=== PATIENT | male | born 1950 | race Caucasian/White ===

== ENCOUNTER 2020-04-24 18:28 | Emergency (ER) | payer MEDICARE, MEDICAID, SELFPAY ==
--- NOTE | 2020-04-24 18:33 | ED_ITS ---
HPI - Psych General: Chief Complaint: General Medical Stated Complaint: mhe Time Seen by Provider: 04/24/20 18:33 History of Present Illness: HPI Narrative: Mr. Vora is a 70-year-old gentleman who was pulled over under suspicion of driving under the influence. He has a history of COPD, and a recent diagnosis of colon cancer, and was brought to the hospital for fit for confinement determination. On his arrival, he complains of widespread pain, including his stomach, neck, and back. He says that he has had fevers, been coughing, and been short of breath. MD complaint: altered mental status Onset (ago): hour(s) History of same: Yes Exacerbating factors: medication Associated symptoms: Deny auditory hallucinations, visual hallucinations or suicidal ideation Review of Systems Const: Denies: fever(s) or chills Eyes: Denies: change in vision or blurry vision ENMT: Reports: post nasal drip and sinus pain; Denies: bleeding gums, change in hearing or epistaxis Card: Denies: chest pain, palpitations, irregular heart rhythm or edema Resp: Reports: dyspnea, productive cough and wheezing; Denies: non-productive cough GI: Reports: abdominal pain, nausea and rectal pain; Denies: vomiting : Denies: difficulty urinating or hematuria Musc: Reports: neck pain and back pain Skin/Breast: Denies: rash or erythema Neuro: Reports: dizziness; Denies: headache(s), vertigo or confusion Psych: Denies: visual hallucinations, auditory hallucinations or suicidal ideation PFSH ED PFSH: Social History Smoking and tobacco status: current every day smoker Physical Exam Const: GENERAL APPEARANCE: Limp noted and odor of alcohol detected ORIENTATION/CONSCIOUSNESS: Yes oriented to person, Yes oriented to place and Yes oriented to time HENMT: COMMON NORMALS: normocephalic, external ears normal and Normal external nose present HEAD & SCALP: normocephalic FACE & SINUS: normal facial exam NOSE: Normal external nose present and No nasal discharge present EXTERNAL EAR: Yes external ears normal MOUTH: tongue normal THROAT: posterior oropharynx normal Eye: COMMON NORMALS: Equal, round and reactive pupils present, EOMs intact bilaterally and conjunctivae normal EYELID: eyelids normal CONJUNCTIVA: Yes conjunctivae normal PUPIL: Yes Equal, round and reactive pupils present Neck/C-Spine: GENERAL: No tracheal deviation Chest: COMMONS NORMALS: normal inspection of the chest CHEST: No tenderness Resp: COMMON NORMALS: clear to auscultation bilaterally EFFORT & INSPECTION: No tachypneic, No respiratory distress, No retractions, No uses accessory muscles and No tracheal deviation AUSCULTATION: clear to auscultation bilaterally, no rhonchi, no wheezes and lung sounds not diminished Cardio: COMMON NORMALS: regular rate and regular rhythm RATE: regular rate RHYTHM: regular rhythm HEART SOUNDS: no murmurs PERIPHERAL PULSES: radial pulses present GI: INSPECTION: No abdominal distension AUSCULTATION: No Hyperactive bowel sounds present and No Hypoactive bowel sounds present PALPATION: No Guarding due to palpation present (GI) and No Rigid due to palpation PERCUSSION: no dullness to percussion and no tympanic to percussion Neuro: SENSORIUM/ORIENTATION: Yes oriented to person, Yes oriented to place and Yes oriented to time CRANIAL NERVES: Yes CN normal except as noted SPEECH: Other neuro speech findings (slurred) GAIT: Yes Antalgic gait present SENSORY EXAM: Yes extremities MOTOR EXAM: Pronator motor function not present Skin: COMMON NORMALS: no rashes or lesions noted GENERAL SKIN EXAM: no rashes or lesions noted MDM - Psych MDM Narrative: Medical decision making narrative: 70-year-old gentleman evidently with a history of a rectal mass biopsied by colonoscopy a few days ago. He has multiple complaints, most likely brought on by the fact that he was brought in in handcuffs. His labs are normal. He is mildly intoxicated with alcohol. He carries with him a bottle of hydrocodone prescribed on 04/14/2020 of 69 pills, 6 of which are left. He is on on oxygen chronically, and has maintained good saturations on his home oxygen setting. He will be discharged. Lab Data: Labs: Lab Results 04/24/20 04/24/20 Range/Units 18:40 18:40 WBC 5.8 (4.0-10.0) 10^3/ uL RBC 4.59 (4.1-5.3) 10^6/u L Hgb 14.0 (11.7-16.6) g/dL Hct 43.9 (42.0-52.0) % MCV 95.6 H (80-94) fL MCH 30.5 (28.0-34.0) pg MCHC 31.9 (30.0-36.0) g/dL RDW 13.0 (12.1-15.1) % Plt Count 211 (130-400) 10^3/c mm MPV 10.2 (7.4-10.4) fL Neut % (Auto) 53.6 % Lymph % (Auto) 31.1 % [place] % (Auto) 10.0 % Eos % (Auto) 4.7 % Baso % (Auto) 0.3 % Neut # (Auto) 3.1 (1.8-7.7) 10^3/u L Lymph # (Auto) 1.8 (0.8-4.8) 10^3/u L [place] # (Auto) 0.6 (0.2-0.9) 10^3/u L Eos # (Auto) 0.3 (0.0-0.8) 10^3/u L Baso # (Auto) 0.0 (0.0-0.1) 10^3/u L Nucleated RBC % (a uto) 0 % Nucleated RBCs # 0.0 /100WBC Sodium 140 (136-145) mmol/L Potassium 4.5 (3.5-5.1) mmol/L Chloride 102 (98-107) mmol/L Carbon Dioxide 28 (22-29) mmol/L Anion Gap 14.5 (5-19) BUN 11 (8-23) mg/dL Creatinine 1.0 (0.7-1.2) mg/dL GFR Calculation 74.3 L (90-130) mL/min Glucose 92 (65-115) mg/dL Calculated Osmolal ity 286 (285-295) mOsm/k g Calcium 8.5 (8.5-10.5) mg/dL Total Bilirubin 0.3 (0.15-1.2) mg/dL AST 26 (0-40) U/L ALT 24 (0-41) U/L Alkaline Phosphata se 88 (40-130) IU/L Total Protein 6.7 (6.6-8.7) g/dL Albumin 3.9 (3.5-5.2) g/dL Globulin 2.8 (1.3-4.6) g/dL TSH 2.31 (0.27-4.20) uIU/ mL Salicylates < 0.3 L (3-10) mg/dL Acetaminophen < 5.0 L (10-30) ug/mL Ethyl Alcohol 94 H (0-10) mg/dL Discharge Plan Discharge Patient Disposition: Home, Self-Care Clinical Impression: Alcohol intoxication Qualifiers: Complication of substance-induced condition: uncomplicated Qualified Code(s): F10.920 - Alcohol use, unspecified with intoxication, uncomplicated Chronic pain Qualifiers: Chronic pain type: chronic pain syndrome Qualified Code(s): G89.4 - Chronic pain syndrome Condition: Stable Discharge Orders: Discharge Order (Routine); Ordered 04/24/20 Ordered By: Christofer Trent Discharge Diet: Usual diet Discharge Activity: Increase activity as tolerated Patient Instructions: Chronic Pain (ED), Alcohol Intoxication (ED) Activity Restrictions/Additional Instructions: Mr. Archer is on oxygen chronically for COPD. He is otherwise fit for confinement, but without oxygen availability, he will not be fit. He will therefore be discharged home. Discharge Date/Time: 04/24/20 21:03 Coding Level of Care Code ED Milk Wagon Driver for Trish Lara Exam Comprehensive
--- NOTE | 2020-04-24 18:34 | ECG_ITS ---
Measurements Intervals [place] Rate: 73 P: 76 MT: 163 QRS: 81 QRSD: 93 T: 82 QT: 369 QTc: 407 SINUS RHYTHM Compared to ECG 07/07/2019 10:52:50 No significant changes Electronically Signed On 04-25-2020 10:31:52 CDT by Jimy Cruz MD [email or web address]
--- NOTE | 2020-04-24 18:34 | XR_ITS ---
WS: [id number] PORTABLE CHEST HISTORY: ams COMPARISON: 07/07/2019 Hyperinflated lungs. Scattered granulomata. No pneumonia. Normal vasculature. No pleural effusion or pneumothorax. Cardiac size: Normal. Mediastinum/Aorta: Normal mediastinum. No osseous abnormality seen. XR/XR chest 1V portable [id number] IMPRESSION: Chronic emphysema.
[2020-04-24 18:39] VITALS: BP 149/69; PULSE 80; RESP 18; TEMP 36.8; O2SAT 92; BMI 22.1
[2020-04-24 18:59] LABS: Basophils % 0.3 %; Eosinophils # 0.3 10^3/uL (0.0-0.8); Eosinophils % 4.7 %; Hematocrit 43.9 % (42.0-52.0); Lymphocytes # 1.8 10^3/uL (0.8-4.8); Lymphocytes % 31.1 %; Mean Corpuscular HGB Conc 31.9 g/dL (30.0-36.0); Mean Corpuscular Hemoglobin 30.5 pg (28.0-34.0); Mean Corpuscular Volume 95.6 fL (80-94); Mean Platelet Volume 10.2 fL (7.4-10.4); Monocytes # 0.6 10^3/uL (0.2-0.9); Neutrophils # 3.1 10^3/uL (1.8-7.7); Neutrophils % 53.6 %; Nucleated Red Blood Cells % 0 %; Platelet Count 211 10^3/cmm (130-400); Red Blood Count 4.59 10^6/uL (4.1-5.3); White Blood Count 5.8 10^3/uL (4.0-10.0)
[2020-04-24 19:20] VITALS: BP 147/83; PULSE 71; RESP 18; O2SAT 95
[2020-04-24 19:20] LABS: Thyroid Stimulating Hormone 2.31 uIU/mL (0.27-4.20)
[2020-04-24 19:31] LABS: Alanine Aminotransferase 24 U/L (0-41); Albumin Level 3.9 g/dL (3.5-5.2); Alcohol Level 94 mg/dL (0-10); Alkaline Phosphatase 88 IU/L (40-130); Anion Gap 14.5 (5-19); Aspartate Amino Transferase 26 U/L (0-40); Blood Urea Nitrogen 11 mg/dL (8-23); Calcium 8.5 mg/dL (8.5-10.5); Carbon Dioxide 28 mmol/L (22-29); Chloride 102 mmol/L (98-107); Globulin 2.8 g/dL (1.3-4.6); Glomerular Filtration Rate 74.3 mL/min (90-130); Glucose 92 mg/dL (65-115); Osmolality Calculated 286 mOsm/kg (285-295); Potassium 4.5 mmol/L (3.5-5.1); Sodium 140 mmol/L (136-145); Total Bilirubin 0.3 mg/dL (0.15-1.2); Total Protein 6.7 g/dL (6.6-8.7)
[2020-04-24 19:34] LABS: Acetaminophen < 5.0 ug/mL (10-30); Salicylate < 0.3 mg/dL (3-10)
== END 2020-04-24 21:03 | disposition home or self-care (01) ==
PROVIDERS: Emergency Provider Emergency Medicine
DX: F10.120 Alcohol abuse with intoxication, uncomplicated (principal); Y90.4 Blood alcohol level of 80-99 mg/100 ml; G89.4 Chronic pain syndrome; F17.210 Nicotine dependence, cigarettes, uncomplicated
CPT/HCPCS: 12345; 71045; 80053; 80307; 84443; 85025; 93005; 93010; 99281; 99283

== ENCOUNTER 2020-07-17 00:12 | Emergency (ER) | payer MEDICARE, MEDICAID, SELFPAY ==
[2020-07-17 00:38] VITALS: BP 172/74; PULSE 75; RESP 22; TEMP 36.7; O2SAT 95; BMI 25.1
--- NOTE | 2020-07-17 00:53 | XRR_ITS ---
PROCEDURE INFORMATION: Exam: XR Chest, 1 View Exam date and time: 07/17/2020 1:30 AM Age: 70 years old Clinical indication: Cough; Additional info: Copd, cough TECHNIQUE: Imaging protocol: XR of the chest Views: 1 view. COMPARISON: CR XR chest 1V portable [id number] 2020-04-24 18:48 FINDINGS: Lungs: COPD. Pleural space: Trace pleural effusions. Heart/Mediastinum: Unremarkable. No cardiomegaly. Bones/joints: Unremarkable. XR/XR chest 1V portable [id number] IMPRESSION: COPD. Trace pleural effusions.
--- NOTE | 2020-07-17 00:53 | XRR_ITS ---
PROCEDURE INFORMATION: Exam: XR Right Hip with Pelvis when Performed Exam date and time: 07/17/2020 2:11 AM Age: 70 years old Clinical indication: Injury or trauma; Fall; Initial encounter; Blunt trauma (contusions or hematomas); Right; Hip TECHNIQUE: Imaging protocol: XR Right hip with pelvis when performed. Views: 1 view. COMPARISON: No relevant prior studies available. FINDINGS: No acute fracture or dislocation is demonstrated on these 2 views. There is joint space narrowing. XR/XR hip RT 2-3V wo/w pel* [id number] IMPRESSION: No acute osseous abnormality is demonstrated.
--- NOTE | 2020-07-17 01:01 | W.ED.SOB ---
HPI - SOB/Dyspnea General: Chief Complaint: Shortness of Breath/Dyspnea Stated Complaint: bad sinus infection/ chronic pain/ fell Time Seen by Provider: 07/17/20 00:49 Source: patient Mode of arrival: ambulatory Limitations: no limitations History of Present Illness: HPI Narrative: Patient comes in today with complaints of right hip pain due to a fall yesterday. Patient also reports a sinus infection with productive cough of yellow-green sputum. Patient has a history of COPD, lung cancer, hepatitis C, cirrhosis of the liver. Patient appears in no acute distress. Patient appears well. Patient appears in mild to moderate pain. Review of Systems General: Reports: 10 or more systems reviewed and unremarkable except in HPI and below Resp: Reports: productive cough Musc: Reports: joint pain (right hip) PFSH ED PFSH: Social History Smoking and tobacco status: current every day smoker Physical Exam Const: COMMON NORMALS: no acute distress and patient oriented x3 GENERAL APPEARANCE: cooperative HENMT: COMMON NORMALS: normocephalic and TM's normal bilaterally HEAD & SCALP: normal to inspection and normocephalic NOSE: Nasal discharge present and Other nasal findings present TYMPANIC MEMBRANE: TM's normal bilaterally MOUTH: Normal oral and palatal mucosa present THROAT: posterior oropharynx normal Eye: GENERAL EYE: appearance normal, both eyes and all related structures Neck/C-Spine: COMMON NORMALS: full ROM Lymph: LYMPHATIC: no lymphadenopathy noted Chest: COMMONS NORMALS: normal inspection of the chest Resp: COMMON NORMALS: normal respiratory effort EFFORT & INSPECTION: Yes able to speak in complete sentences AUSCULTATION: diminished lung sounds Cardio: COMMON NORMALS: regular rate and regular rhythm RATE: regular rate RHYTHM: regular rhythm GI: COMMON NORMALS: non-tender : COMMON NORMALS: Yes no CVA tenderness BLADDER/KIDNEY EXAM: Yes no CVA tenderness Back/Pelvis: COMMON NORMALS: no CVA tenderness and thoracic and lumbar spine normal to inspection Extremity: COMMON NORMALS: normal to inspection Neuro: COMMON NORMALS: patient oriented x3 and moves all extremities Psych: COMMON NORMALS: mental status grossly normal and cooperative Skin: COMMON NORMALS: no rashes or lesions noted GENERAL SKIN EXAM: no rashes or lesions noted Course Vital Signs: Vital signs: Vital Signs Temperature 98.1 F 07/17/20 00:38 Pulse Rate 73 07/17/20 01:51 Respiratory Rate 18 07/17/20 01:51 Blood Pressure 139/59 07/17/20 01:51 Pulse Oximetry 94 07/17/20 01:51 MDM - SOB/Dyspnea MDM Narrative: Medical decision making narrative: Patient comes in today with complaints of cough and congestion with a productive sputum. Patient also reports falling yesterday and hurting his right hip. Patient states that he has chronic pain in the hip but is aggravated since his fall. Patient states that he falls occasionally due to the arthritis in his hip. Exam notes good range of motion of the hip. Patient is weightbearing without difficulty. Respirations are even lungs are decreased in the bases. Differential diagnosis includes but not limited to pneumonia, exacerbation of COPD, fracture, contusion. Chest x-ray noted no pneumonia. X-ray of the hip noted no fracture. Laboratory values were normal. And patient's vital signs are good. Patient was treated with morphine 4 mg for his pain with good results. Patient was given 1 nebulizer treatment, 8 mg of dexamethasone, and 100 mg of doxycycline p.o. Patient was recommended continue with the doxycycline and prednisone for the exacerbation of COPD. Patient was recommended to follow-up with primary care for further pain measures. Patient does have pain management through 1 of the pain clinics in [facility]. Patient reported understanding agreed to plan. Lab Data: Labs: Lab Results 07/17/20 07/17/20 Range/Units 01:01 01:01 WBC 8.7 (4.0-10.0) 10^3/ uL RBC 4.77 (4.1-5.3) 10^6/u L Hgb 14.0 (11.7-16.6) g/dL Hct 44.1 (42.0-52.0) % MCV 92.5 (80-94) fL MCH 29.4 (28.0-34.0) pg MCHC 31.7 (30.0-36.0) g/dL RDW 12.8 (12.1-15.1) % Plt Count 183 (130-400) 10^3/c mm MPV 10.5 H (7.4-10.4) fL Neut % (Auto) 69.5 % Lymph % (Auto) 19.0 % [place] % (Auto) 8.0 % Eos % (Auto) 2.8 % Baso % (Auto) 0.5 % Neut # (Auto) 6.06 (1.8-7.7) 10^3/u L Lymph # (Auto) 1.7 (0.8-4.8) 10^3/u L [place] # (Auto) 0.7 (0.2-0.9) 10^3/u L Eos # (Auto) 0.2 (0.0-0.8) 10^3/u L Baso # (Auto) 0.0 (0.0-0.1) 10^3/u L Nucleated RBC % (a uto) 0 % Nucleated RBCs # 0.0 /100WBC Sodium 140 (136-145) mmol/L Potassium 4.7 (3.5-5.1) mmol/L Chloride 105 (98-107) mmol/L Carbon Dioxide 28 (22-29) mmol/L Anion Gap 11.7 (5-19) BUN 14 (8-23) mg/dL Creatinine 0.7 (0.7-1.2) mg/dL GFR Calculation 112.1 (90-130) mL/min Glucose 107 (65-115) mg/dL Calculated Osmolal ity 287 (285-295) mOsm/k g Calcium 9.2 (8.5-10.5) mg/dL Discharge Plan Discharge Patient Disposition: Home Clinical Impression: Acute exacerbation of chronic obstructive airways disease, Chronic pain of right hip Fall Qualifiers: Encounter type: initial encounter Qualified Code(s): W19.XXXA - Unspecified fall, initial encounter Condition: Stable Prescriptions: New doxycycline hyclate 100 mg capsule 100 mg PO BID 10 Days Qty: 20 RF: 0 prednisone 20 mg tablet 20 mg PO BID 5 Days Qty: 10 RF: 0 Discharge Orders: Discharge Order (Routine); Ordered 07/17/20 Ordered By: Jonah Burdick Discharge Diet: Usual diet Discharge Activity: Increase activity as tolerated Activity Restrictions/Additional Instructions: Continue with routine care. Drink plenty of water with medication. Follow-up with primary care for further treatment. Activity as tolerated. Return to the emergency department for new concerns. Coding Level of Care Code ED Learning Disabilities Resource Teacher for Trish Fwd Exam Comprehensive
[2020-07-17 01:12] LABS: Basophils % 0.5 %; Eosinophils # 0.2 10^3/uL (0.0-0.8); Eosinophils % 2.8 %; Hematocrit 44.1 % (42.0-52.0); Lymphocytes # 1.7 10^3/uL (0.8-4.8); Mean Corpuscular HGB Conc 31.7 g/dL (30.0-36.0); Mean Corpuscular Hemoglobin 29.4 pg (28.0-34.0); Mean Corpuscular Volume 92.5 fL (80-94); Mean Platelet Volume 10.5 fL (7.4-10.4); Monocytes # 0.7 10^3/uL (0.2-0.9); Neutrophils # 6.06 10^3/uL (1.8-7.7); Neutrophils % 69.5 %; Nucleated Red Blood Cells % 0 %; Platelet Count 183 10^3/cmm (130-400); Red Blood Count 4.77 10^6/uL (4.1-5.3); Red Cell Distribution Width 12.8 % (12.1-15.1); White Blood Count 8.7 10^3/uL (4.0-10.0)
[2020-07-17 01:15] VITALS: PULSE 98; RESP 18; O2SAT 98
[2020-07-17] MEDS: ipratropium-albuterol 3 mL Neb INHALATION (01:15)
[2020-07-17 01:20] VITALS: PULSE 71
[2020-07-17 01:39] LABS: Anion Gap 11.7 (5-19); Blood Urea Nitrogen 14 mg/dL (8-23); Calcium 9.2 mg/dL (8.5-10.5); Carbon Dioxide 28 mmol/L (22-29); Chloride 105 mmol/L (98-107); Creatinine Clr Calc Pharmacy 91.5805; Glomerular Filtration Rate 112.1 mL/min (90-130); Glucose 107 mg/dL (65-115); Osmolality Calculated 287 mOsm/kg (285-295); Potassium 4.7 mmol/L (3.5-5.1); Sodium 140 mmol/L (136-145)
[2020-07-17] MEDS: dexamethasone 10 mg/mL INJ 8 MG IM (01:40)
[2020-07-17 01:42] VITALS: RESP 20
[2020-07-17] MEDS: morphine 4 mg/mL SDV 1 mL IM (01:42)
[2020-07-17 01:51] VITALS: BP 139/59; PULSE 73; RESP 18; O2SAT 94
[2020-07-17] MEDS: doxycycline 100 mg Tablet PO (02:24)
[2020-07-17 02:43] VITALS: BP 149/65; PULSE 86; RESP 22; O2SAT 96
== END 2020-07-17 02:30 | disposition home or self-care (01) ==
PROVIDERS: Emergency Provider Nurse Practitioner Family
DX: J44.1 Chronic obstructive pulmonary disease with (acute) exacerbation (principal); G89.29 Other chronic pain; M25.551 Pain in right hip; F17.210 Nicotine dependence, cigarettes, uncomplicated; Z85.118 Personal history of other malignant neoplasm of bronchus and lung; Z86.19 Personal history of other infectious and parasitic diseases
CPT/HCPCS: 12345; 71045; 73502; 80048; 85025; 94640; 96372; 99281; 99283; J1100; J2270

== ENCOUNTER 2020-08-28 21:02 | Emergency (ER) | payer MEDICARE, MEDICAID, SELFPAY ==
[2020-08-28 21:13] VITALS: BP 158/84; PULSE 73; RESP 16; TEMP 36.9; O2SAT 100; BMI 20.7
--- NOTE | 2020-08-28 21:27 | XR_ITS ---
WS: [id number] PORTABLE CHEST HISTORY: Short of breath and chest pain. COMPARISON: 07/17/2020 Marked pulmonary hyperexpansion. Biapical pleural thickening with minimal blunting of the costophreni c angles. No interval change. No pleural effusion or pneumothorax. Cardiac size: Normal. Mediastinum/Aorta: Mild atherosclerosis aorta. No osseous abnormality seen. XR/XR chest 1V portable [id number] IMPRESSION: Chronic emphysema, no pneumonia.
--- NOTE | 2020-08-28 21:29 | CTR_ITS ---
PROCEDURE INFORMATION: Exam: CT Head Without Contrast Exam date and time: 08/28/2020 9:39 PM Age: 70 years old Clinical indication: Weakness, extremity; Right; Patient HX: Stroke and mi last month C/O worsening rue pain and weakness; Additional info: Weakness right side TECHNIQUE: Imaging protocol: Computed tomography of the head without contrast. Radiation optimization: All CT scans at this facility use at least one of these dose optimization techniques: automated exposure control; mA and/or kV adjustment per patient size (includes targeted exams where dose is matched to clinical indication); or iterative reconstruction. COMPARISON: CT head wo con* [id number] 07/07/2019 8:11 AM RADIATION DOSE METRICS: Total DLP (mGy-cm): 872.16 FINDINGS: Brain: There are multiple areas of cortical and subcortical hypodensity in the left parietal lobe as well as the posterior left frontal lobe and left occipital lobe. There is mild negative mass effect indicating these are late subacute to early chronic in age. There are scattered areas of hyperdensity within the infarcts consistent with petechial hemorrhage. Chronicity is indeterminate. No significant positive mass effect. Chronic lacunar infarct in the left basal ganglia. Cerebral ventricles: No ventriculomegaly. Bones/joints: Unremarkable. No acute fracture. Paranasal sinuses: Visualized sinuses are unremarkable. No fluid levels. Mastoid air cells: Visualized mastoid air cells are well aerated. Orbits: Chronic deformity of the left medial orbital wall. Soft tissues: Unremarkable. 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 There are scattered areas of petechial hemorrhage within the infarct beds but without positive mass effect. Radiation Dose CTDIVOL = (mGy): DLP = 872.16 (mGy-cm)
--- NOTE | 2020-08-28 21:29 | ED_ITS ---
HPI - Chest Pain General: Chief Complaint: Chest Pain Stated Complaint: PAIN R ARM/SAYS HE JUST HAS A STROKE Time Seen by Provider: 08/28/20 21:14 History of Present Illness: HPI narrative: 70-year-old gentleman presents with chest pain and right arm pain. He states that he spent a little over 30 days in the hospital in [place] following a stroke and a heart attack that he had last month. He just got out a few days ago. He began to have worsening right arm pain with some right sided chest pain today. He has a history of COPD as well, and has had some trouble breathing. He is had no fever or cough. He believes that he got TPA for stroke in [place] but he is not sure. He is sure that he did not get stents in his heart placed. MD complaint: chest pain Pertinent past history: prior ID and other (cva) Onset (ago): hour(s) Timing of current episode: constant Prior episodes: Yes Onset: during rest Pain location: right chest Pain radiation: right arm Quality: aching and heaviness Relieving factors: nothing Exacerbating factors: nothing Context: recent illness Associated symptoms: Reports dyspnea; Deny fever(s), leg edema, nausea, palpitations or vomiting Review of Systems Const: Denies: fever(s) Eyes: Denies: change in vision or blurry vision ENMT: Denies: swelling of lips/tongue, bleeding gums, dental pain, change in hearing, epistaxis, post nasal drip or sinus pain Card: Reports: chest pain, dyspnea on exertion and orthopnea; Denies: palpitations, irregular heart rhythm, edema or swelling of feet/ankles Resp: Reports: dyspnea GI: Denies: nausea or vomiting : Denies: difficulty urinating or hematuria Musc: Denies: neck pain, back pain or joint warmth Skin/Breast: Denies: rash, pruritus or erythema Neuro: Denies: headache(s), dizziness or vertigo Psych: Denies: anxiety PFSH ED PFSH: Social History Smoking and tobacco status: current every day smoker Physical Exam Const: COMMON NORMALS: patient oriented x3 GENERAL APPEARANCE: well developed ORIENTATION/CONSCIOUSNESS: Yes oriented to person, Yes oriented to place and Yes oriented to time HENMT: COMMON NORMALS: external ears normal and Normal external nose present FACE & SINUS: other (Mild right-sided facial droop) NOSE: Normal external nose present and No nasal discharge present EXTERNAL EAR: Yes external ears normal Eye: COMMON NORMALS: Equal, round and reactive pupils present, EOMs intact bilaterally and conjunctivae normal EYELID: eyelids normal CONJUNCTIVA: Yes conjunctivae normal PUPIL: Yes Equal, round and reactive pupils present Neck/C-Spine: GENERAL: No tracheal deviation Chest: COMMONS NORMALS: normal inspection of the chest CHEST: No tenderness Resp: EFFORT & INSPECTION: Yes tachypneic, No respiratory distress, No retractions, Yes uses accessory muscles and No tracheal deviation AUSCULTATION: rales, no rhonchi, no wheezes and diminished lung sounds Cardio: COMMON NORMALS: regular rate and regular rhythm RATE: regular rate RHYTHM: regular rhythm HEART SOUNDS: no murmurs PERIPHERAL PULSES: radial pulses present GI: INSPECTION: No abdominal distension AUSCULTATION: No Hyperactive bowel sounds present and No Hypoactive bowel sounds present PALPATION: No Guarding due to palpation present (GI) and No Rigid due to palpation PERCUSSION: no dullness to percussion and no tympanic to percussion : COMMON NORMALS: Yes no CVA tenderness BLADDER/KIDNEY EXAM: Yes no CVA tenderness Back/Pelvis: COMMON NORMALS: no CVA tenderness Neuro: COMMON NORMALS: patient oriented x3 SENSORIUM/ORIENTATION: Yes oriented to person, Yes oriented to place and Yes oriented to time CRANIAL NERVES: Yes CN VII (facial) Laterality: right CN VII findings: facial droop COORDINATION/BALANCE: [id number] test normal SPEECH: abnormal speech Details: slurred GAIT: Yes Unable to assess gait MOTOR EXAM: Pronator motor function present pronator drift of right upper extremity (mild) COORDINATION: [id number] test normal Psych: COMMON NORMALS: mental status grossly normal Skin: COMMON NORMALS: no rashes or lesions noted GENERAL SKIN EXAM: no rashes or lesions noted Course Consultations: Consultation #1: [facility] Vital Signs: Vital signs: Vital Signs Temperature 98.4 F 08/28/20 21:13 Pulse Rate 64 08/29/20 01:54 Respiratory Rate 16 08/29/20 01:54 Blood Pressure 112/60 08/29/20 01:54 Pulse Oximetry 94 08/29/20 01:54 MDM - Chest Pain MDM Narrative: Medical decision making narrative: 70-year-old gentleman with a history of a large left hemispheric stroke. He presents with a right-sided upper extremity pain, with a small increase in weakness since his prior symptoms on the right side. He has no headache. No other recent illness. His white blood cell count is 8.7. Hemoglobin 12.9. Electrolytes are normal. His head CT shows his aging left hemispheric stroke, but with punctate hemorrhage present. This is assumed to be new, as was not present on the last CT he had, which was a couple of days after his admission for the stroke. His pain is improved currently after some pain medication. He notes that he still feels a little weaker in the right upper extremity than he did yesterday. He has no other symptoms. He was hypertensive on arrival, but has gotten Nitropaste on his chest. His current blood pressure is 128/66. Heart rate 62, oxygen saturations 94% on room air with respirations 18. We have no neurosurgery availability or neurology availability at this time in this facility. Hospitals in [facility] are on diversion. I spoke with neurology service at [facility] in [place]. They are willing to take in transfer. He is stable at this point. Lab Data: Labs: Lab Results 08/28/20 08/28/20 08/28/20 Range/Units 21:30 21:30 21:30 WBC 8.7 (4.0-10.0) 10^3/ uL RBC 4.25 (4.1-5.3) 10^6/u L Hgb 12.9 (11.7-16.6) g/dL Hct 40.0 L (42.0-52.0) % MCV 94.1 H (80-94) fL MCH 30.4 (28.0-34.0) pg MCHC 32.3 (30.0-36.0) g/dL RDW 13.6 (12.1-15.1) % Plt Count 180 (130-400) 10^3/c mm MPV 10.7 H (7.4-10.4) fL Neut % (Auto) 68.4 % Lymph % (Auto) 20.3 % [place] % (Auto) 7.8 % Eos % (Auto) 2.9 % Baso % (Auto) 0.3 % Neut # (Auto) 5.94 (1.8-7.7) 10^3/u L Lymph # (Auto) 1.8 (0.8-4.8) 10^3/u L [place] # (Auto) 0.7 (0.2-0.9) 10^3/u L Eos # (Auto) 0.3 (0.0-0.8) 10^3/u L Baso # (Auto) 0.0 (0.0-0.1) 10^3/u L Nucleated RBC % (a uto) 0 % Nucleated RBCs # 0.0 /100WBC PT 12.80 (12.1-14.9) SECO NDS INR 0.93 (0.8-1.2) APTT 26.5 (23.9-36.7) SECO NDS D-Dimer 0.53 (0-0.59) ug/mIFE U Sodium 138 (136-145) mmol/L Potassium 4.3 (3.5-5.1) mmol/L Chloride 103 (98-107) mmol/L Carbon Dioxide 26 (22-29) mmol/L Anion Gap 13.3 (5-19) BUN 14 (8-23) mg/dL Creatinine 0.7 (0.7-1.2) mg/dL GFR Calculation 112.1 (90-130) mL/min Glucose 122 H (65-115) mg/dL Calculated Osmolal ity 288 (285-295) mOsm/k g Calcium 9.5 (8.5-10.5) mg/dL Total Bilirubin 0.2 (0.15-1.2) mg/dL AST 13 (0-40) U/L ALT 9 (0-41) U/L Alkaline Phosphata se 75 (40-130) IU/L Creatine Kinase 37 L (39-308) U/L Troponin T Baselin e (0-15) ng/L Troponin T 120 Min [place] (0-15) ng/L Delta Troponin T (0-10) ABS# NT-Pro-B Natriuret Pep 321 H (0-125) pg/mL Total Protein 6.7 (6.6-8.7) g/dL Albumin 3.9 (3.5-5.2) g/dL Globulin 2.8 (1.3-4.6) g/dL Urine Color (Yellow) Urine Appearance (CLEAR) Urine pH (5-7) Ur Specific Gravit y (1.005-1.030) Urine Protein (Negative) Urine Glucose (UA) (Normal) Urine Ketones (Negative) Urine Blood (Negative) Urine Nitrate (Negative) Urine Bilirubin (Negative) Urine Urobilinogen (Negative) mg/dL Ur Leukocyte Luciana ase (Negative) 08/28/20 08/28/20 08/29/20 Range/Units 21:30 23:25 00:04 WBC (4.0-10.0) 10^3/ uL RBC (4.1-5.3) 10^6/u L Hgb (11.7-16.6) g/dL Hct (42.0-52.0) % MCV (80-94) fL MCH (28.0-34.0) pg MCHC (30.0-36.0) g/dL RDW (12.1-15.1) % Plt Count (130-400) 10^3/c mm MPV (7.4-10.4) fL Neut % (Auto) % Lymph % (Auto) % [place] % (Auto) % Eos % (Auto) % Baso % (Auto) % Neut # (Auto) (1.8-7.7) 10^3/u L Lymph # (Auto) (0.8-4.8) 10^3/u L [place] # (Auto) (0.2-0.9) 10^3/u L Eos # (Auto) (0.0-0.8) 10^3/u L Baso # (Auto) (0.0-0.1) 10^3/u L Nucleated RBC % (a uto) % Nucleated RBCs # /100WBC PT (12.1-14.9) SECO NDS INR (0.8-1.2) APTT (23.9-36.7) SECO NDS D-Dimer (0-0.59) ug/mIFE U Sodium (136-145) mmol/L Potassium (3.5-5.1) mmol/L Chloride (98-107) mmol/L Carbon Dioxide (22-29) mmol/L Anion Gap (5-19) BUN (8-23) mg/dL Creatinine (0.7-1.2) mg/dL GFR Calculation (90-130) mL/min Glucose (65-115) mg/dL Calculated Osmolal ity (285-295) mOsm/k g Calcium (8.5-10.5) mg/dL Total Bilirubin (0.15-1.2) mg/dL AST (0-40) U/L ALT (0-41) U/L Alkaline Phosphata se (40-130) IU/L Creatine Kinase (39-308) U/L Troponin T Baselin e 15 (0-15) ng/L Troponin T 120 Min [place] 14.13 (0-15) ng/L Delta Troponin T -0.87 L (0-10) ABS# NT-Pro-B Natriuret Pep (0-125) pg/mL Total Protein (6.6-8.7) g/dL Albumin (3.5-5.2) g/dL Globulin (1.3-4.6) g/dL Urine Color Yellow (Yellow) Urine Appearance Clear (CLEAR) Urine pH 6 (5-7) Ur Specific Gravit y 1.015 (1.005-1.030) Urine Protein Neg (Negative) Urine Glucose (UA) Norm (Normal) Urine Ketones Negative (Negative) Urine Blood Neg (Negative) Urine Nitrate Negative (Negative) Urine Bilirubin Neg (Negative) Urine Urobilinogen Norm (Negative) mg/dL Ur Leukocyte Luciana ase Negative (Negative) Coding Level of Care Code ED Collar Packer for Chg Fwd Exam Comprehensive
[2020-08-28 21:34] VITALS: BP 156/79; PULSE 81; RESP 22; O2SAT 100
[2020-08-28 21:42] VITALS: RESP 22; O2SAT 100
[2020-08-28] MEDS: nitroglycerin 1 gm/inch oint Pkt 1 INCH TOPICAL (21:42)
[2020-08-28] MEDS: ondansetron 2 mg/ML SDV 2 mL 4 MG IVP (21:42)
[2020-08-28] MEDS: morphine 4 mg/mL SDV 1 mL IVP (21:42)
[2020-08-28 21:54] LABS: Basophils % 0.3 %; Eosinophils # 0.3 10^3/uL (0.0-0.8); Eosinophils % 2.9 %; Hemoglobin 12.9 g/dL (11.7-16.6); Lymphocytes # 1.8 10^3/uL (0.8-4.8); Lymphocytes % 20.3 %; Mean Corpuscular HGB Conc 32.3 g/dL (30.0-36.0); Mean Corpuscular Hemoglobin 30.4 pg (28.0-34.0); Mean Corpuscular Volume 94.1 fL (80-94); Mean Platelet Volume 10.7 fL (7.4-10.4); Monocytes # 0.7 10^3/uL (0.2-0.9); Monocytes % 7.8 %; Neutrophils # 5.94 10^3/uL (1.8-7.7); Neutrophils % 68.4 %; Nucleated Red Blood Cells % 0 %; Platelet Count 180 10^3/cmm (130-400); Red Blood Count 4.25 10^6/uL (4.1-5.3); Red Cell Distribution Width 13.6 % (12.1-15.1); White Blood Count 8.7 10^3/uL (4.0-10.0)
[2020-08-28 22:07] LABS: INR 0.93 (0.8-1.2)
[2020-08-28 22:08] LABS: Partial Thromboplastin Time 26.5 SECONDS (23.9-36.7)
[2020-08-28 22:11] LABS: D Dimer 0.53 ug/mIFEU (0-0.59)
[2020-08-28 22:20] LABS: Troponin(5th) Baseline 15 ng/L (0-15)
[2020-08-28 22:23] VITALS: BP 139/72; PULSE 65; RESP 18; O2SAT 99
[2020-08-28 22:28] LABS: Alanine Aminotransferase 9 U/L (0-41); Albumin Level 3.9 g/dL (3.5-5.2); Alkaline Phosphatase 75 IU/L (40-130); Anion Gap 13.3 (5-19); Aspartate Amino Transferase 13 U/L (0-40); Blood Urea Nitrogen 14 mg/dL (8-23); Calcium 9.5 mg/dL (8.5-10.5); Carbon Dioxide 26 mmol/L (22-29); Chloride 103 mmol/L (98-107); Creatine Phosphokinase 37 U/L (39-308); Globulin 2.8 g/dL (1.3-4.6); Glomerular Filtration Rate 112.1 mL/min (90-130); Glucose 122 mg/dL (65-115); NT Pro B Type Natriuretic Pept 321 pg/mL (0-125); Osmolality Calculated 288 mOsm/kg (285-295); Potassium 4.3 mmol/L (3.5-5.1); Sodium 138 mmol/L (136-145); Total Bilirubin 0.2 mg/dL (0.15-1.2); Total Protein 6.7 g/dL (6.6-8.7)
[2020-08-28 23:19] VITALS: BP 107/64; PULSE 650; RESP 16; O2SAT 99
[2020-08-28 23:56] LABS: Add Urine Microscopic? NO
[2020-08-29 00:06] VITALS: BP 111/63; PULSE 62; RESP 17; O2SAT 97
[2020-08-29 00:23] LABS: Urine Color Yellow (Yellow)
[2020-08-29 00:24] LABS: Bilirubin Urine Neg (Negative); Blood Urine Neg (Negative); Glucose Urine UA Norm (Normal); Ketones Urine Negative (Negative); Leukocyte Esterase Urine Negative (Negative); Nitrate Urine Negative (Negative); Protein Urine Neg (Negative); Specific Gravity, Urine 1.015 (1.005-1.030); Urine Appearance Clear (CLEAR); Urobilinogen Urine Norm (Negative); pH Urine 6 (5-7)
[2020-08-29 00:42] VITALS: RESP 16; O2SAT 99
[2020-08-29] MEDS: HYDROmorphone 1 mg/mL INJ 1 mL IVP (00:42)
[2020-08-29 00:44] VITALS: BP 120/65; PULSE 57; RESP 16; O2SAT 99
[2020-08-29 00:45] LABS: Troponin 5 2HR 14.13 ng/L (0-15)
[2020-08-29 00:49] LABS: Troponin 5 2HR Delta -0.87 ABS# (0-10)
[2020-08-29 01:54] VITALS: BP 112/60; PULSE 64; RESP 16; O2SAT 94
[2020-08-29 03:09] VITALS: BP 102/62; BP 130/68; PULSE 61; PULSE 63; RESP 16; RESP 17; O2SAT 93; O2SAT 95
--- NOTE | 2020-08-29 03:27 | ECG_ITS ---
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 Measurements Intervals [place] Rate: 58 P: 70 RI: 184 QRS: 77 QRSD: 93 T: 78 QT: 411 QTc: 404 Interpretive Statements SINUS BRADYCARDIA ST ELEVATION, PROBABLY EARLY REPOLARIZATION [ST ELEVATION WITH NORMALLY INFLECTED T WAVE] Compared to ECG 04/24/2020 19:42:28 ST (T wave) deviation now present Early repolarization now present Sinus rhythm no longer present Electronically Signed On 08-29-2020 18:01:19 CDT by Radha Hoffmann M.D. [email or web address].[employer]/store/[id number] f
[2020-08-29 04:07] VITALS: BP 138/69; PULSE 63; RESP 17; O2SAT 97
== END 2020-08-29 04:25 ==
PROVIDERS: Emergency Provider Emergency Medicine
DX: R07.9 Chest pain, unspecified (principal); F17.210 Nicotine dependence, cigarettes, uncomplicated
CPT/HCPCS: 12345; 36415; 70450; 71045; 80053; 81003; 82550; 83880; 84484; 85025; 85378; 85610; 85730; 93005; 96374; 96375; 99284; 99285; J1170; J2270; J2405

== ENCOUNTER 2023-08-06 12:08 | Emergency (ER) | payer MEDICARE, MEDICAID, SELFPAY ==
--- NOTE | 2023-08-06 12:12 | XRR_ITS ---
PROCEDURE INFORMATION: Exam: XR Chest Exam date and time: 08/06/2023 12:25 PM Age: 73 years old Clinical indication: Pain; Angina pectoris; Additional info: Cp.No history of trauma or recent surgery is provided. TECHNIQUE: Imaging protocol: Radiologic exam of the chest. 2image(s) are provided. Views: 1 view. COMPARISON: 1. CR XR chest 1V portable [id number] 08/28/2020 10:14 PM 2. CR XR chest 1V portable [id number] 07/17/2020 1:18 AM FINDINGS: Lungs: No lobar consolidation is appreciated. There is mild chronic air trapping appearance similar overall. Pleural spaces: There is some skin fold and fissure averaging similar overall. There is minimal costophrenic angle blunting similar overall. No pneumothorax is appreciated. Heart/Mediastinum: The cardiomediastinal silhouette is within normal. No cardiac decompensation is appreciated. Diaphragm: The hemidiaphragms are symmetric. Bones/joints: Osseous alignment is maintained.No interval displaced fracture or dislocation is appreciated.There is slightly decreased bone mineralization overall. There is slight dextrocurvature versus positioning similar overall. Soft tissues: No radiopaque foreign body or subcutaneous emphysema is appreciated. Other findings: No significant interval changes are appreciated. XR/XR chest 1V portable [id number] IMPRESSION: There is mild chronic air trapping appearance similar overall. No interval acute cardiopulmonary changes are appreciated.
[2023-08-06 12:13] VITALS: BP 196/75; PULSE 67; RESP 18; TEMP 36.8; O2SAT 93; BMI 23.6
--- NOTE | 2023-08-06 12:21 | ECG_ITS ---
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 Measurements Intervals [place] Rate: 63 P: 67 [place]: 163 QRS: 76 QRSD: 90 T: 83 QT: 399 QTc: 410 Interpretive Statements SINUS RHYTHM SEPTAL MYOCARDIAL INFARCTION , OF INDETERMINATE AGE [40+ ms Q WAVE IN V1/V2] Compared to ECG 08/29/2020 03:52:46 Myocardial infarct finding now present Sinus bradycardia no longer present Early repolarization no longer present ST (T wave) deviation still present Electronically Signed On 08-06-2023 14:46:53 CDT by Soy Astorga M.D. [email or web address]/store/[id number]
--- NOTE | 2023-08-06 12:27 | ECG_ITS ---
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 Measurements Intervals [place] Rate: 66 P: 75 DE: 166 QRS: 75 QRSD: 88 T: 81 QT: 394 QTc: 415 Interpretive Statements SINUS RHYTHM MINIMAL ST DEPRESSION [0.025+ mV ST DEPRESSION] Compared to ECG 08/06/2023 12:21:53 Myocardial infarct finding no longer present ST (T wave) deviation still present Electronically Signed On 08-06-2023 14:47:17 CDT by Soy Astorga M.D. [email or web address] hospital at stone countyMultiwave Photonicsst. anthony's hospital.BuildZoom/store/OM/[id number]
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
[2023-08-06] MEDS: aspirin 81 mg Chew Tablet PO (13:10)
[2023-08-06 13:11] VITALS: RESP 16; O2SAT 95
[2023-08-06] MEDS: ondansetron 2 mg/ML SDV 2 mL 4 MG IVP (13:11)
[2023-08-06] MEDS: morphine 4 mg/mL SDV 1 mL IVP (13:11)
[2023-08-06 13:15] LABS: Basophils % 0.4 %; Eosinophils # 0.1 10^3/uL (0.0-0.8); Eosinophils % 0.9 %; Hematocrit 50.2 % (37-53); Lymphocytes # 1.2 10^3/uL (0.8-4.8); Lymphocytes % 18.2 %; Mean Corpuscular HGB Conc 32.5 g/dL (30-55); Mean Corpuscular Hemoglobin 29.2 pg (27-33); Mean Corpuscular Volume 89.8 fl (82-101); Mean Platelet Volume 10.5 fL (7.4-10.4); Monocytes # 0.4 10^3/uL (0.2-0.9); Monocytes % 6.4 %; Neutrophils # 4.99 10^3/uL (1.8-7.7); Nucleated Red Blood Cells % 0 %; Platelet Count 202 10^3/cmm (157-399); Red Blood Count 5.59 10^6/uL (3.85-5.65); Red Cell Distribution Width 12.6 % (12.1-15.1); White Blood Count 6.75 10^3/uL (3.29-11.43)
[2023-08-06 13:19] VITALS: BP 174/102; PULSE 68; O2SAT 92
[2023-08-06] MEDS: nitroglycerin 0.4 mg sublingual Tablet SUBLINGUAL (13:32)
[2023-08-06 13:33] VITALS: BP 175/90; PULSE 56; O2SAT 95
[2023-08-06 13:39] LABS: Troponin(5th) Baseline 7 ng/L (0-15)
[2023-08-06 13:42] LABS: Alanine Aminotransferase < 5 U/L (0-41); Albumin Level 4.9 g/dL (3.5-5.2); Alkaline Phosphatase 102 U/L (40-130); Aspartate Amino Transferase 15 U/L (0-40); Blood Urea Nitrogen 8 mg/dL (8-23); Calcium 9.6 mg/dL (8.5-10.5); Carbon Dioxide 27 mmol/L (22-29); Creatinine Clr Calc Pharmacy 85.5911; Globulin 3.1 g/dL (1.3-4.6); Glucose 86 mg/dL (65-115); Total Bilirubin 0.4 mg/dL (0.15-1.2)
[2023-08-06 14:00] VITALS: BP 153/77; PULSE 56; O2SAT 94
[2023-08-06 14:17] LABS: Anion Gap 14.8 (5-19); Chloride 103 mmol/L (98-107); Osmolality Calculated 288 mOsm/kg (285-295); Potassium 4.8 mmol/L (3.5-5.1); Sodium 140 mmol/L (136-145)
[2023-08-06] MEDS: HYDROmorphone 1 mg/mL INJ 1 mL IVP (14:45)
--- NOTE | 2023-08-07 15:34 | DCPLANNER ---
field care manager called patient due to no primary care physician - immigration case manager called phone number [phone] this is the wrong number
== END 2023-08-06 15:15 | disposition home or self-care (01) ==
PROVIDERS: Emergency Provider Emergency Medicine
DX: R07.9 Chest pain, unspecified (principal); F17.210 Nicotine dependence, cigarettes, uncomplicated
CPT/HCPCS: 36415; 71045; 80053; 84484; 85025; 93005; 96374; 96375; 99285; J1170; J2270; J2405

== ENCOUNTER 2024-05-19 16:08 | Emergency (ER) | payer MEDICARE, MEDICAID, SELFPAY ==
[2024-05-19 16:14] VITALS: BP 198/95; PULSE 61; RESP 18; TEMP 36.7; O2SAT 92; BMI 23.6
[2024-05-19 16:24] VITALS: BP 211/137; PULSE 68; RESP 18; O2SAT 93
--- NOTE | 2024-05-19 16:26 | ECG_ITS ---
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 Measurements Intervals [place] Rate: 59 P: 59 [place]: 174 QRS: 55 QRSD: 89 T: 70 QT: 387 QTc: 386 Interpretive Statements SINUS BRADYCARDIA Compared to ECG 08/06/2023 12:27:49 Sinus rhythm no longer present ST (T wave) deviation no longer present Electronically Signed On 05-22-2024 13:24:22 CDT by Amish Alva M.D. [email or web address] issaquena community hospitalAlephCloud Systemsthe jewish hospitalNEUWAY Pharma/store/NU/[id number] f
--- NOTE | 2024-05-19 16:26 | CTR_ITS ---
PROCEDURE INFORMATION: Exam: CT Head Without Contrast Exam date and time: 05/19/2024 4:58 PM Age: 74 years old Clinical indication: Walking, difficulty; Patient HX: HX of stroke year and half ago; Additional info: Weakjness TECHNIQUE: Imaging protocol: Computed tomography of the head without contrast. Radiation optimization: All CT scans at this facility use at least one of these dose optimization techniques: automated exposure control; mA and/or kV adjustment per patient size (includes targeted exams where dose is matched to clinical indication); or iterative reconstruction. COMPARISON: CT head wo con* [id number] 08/28/2020 9:46 PM RADIATION DOSE METRICS: Total DLP (mGy-cm): 1153 FINDINGS: Brain: There are areas of encephalomalacia involving the left posterior frontal, parietal and occipital lobes consistent with chronic cerebral infarctions and corresponding with the areas of subacute or early chronic infarct seen on 08/28/2020. There is mild cortical atrophy. Low-density changes in the white matter are consistent with nonspecific small vessel chronic ischemic change. There is no intracranial mass, hemorrhage or edema. Cerebral ventricles: No ventriculomegaly. Paranasal sinuses: Visualized sinuses are unremarkable. No fluid levels. Mastoid air cells: Visualized mastoid air cells are well aerated. Bones: Unremarkable. No acute fracture. Soft tissues: Unremarkable. CT/CT head wo con* [id number] IMPRESSION: Chronic left hemispheric infarcts. No acute finding.
--- NOTE | 2024-05-19 16:26 | XRR_ITS ---
PROCEDURE INFORMATION: Exam: XR Chest Exam date and time: 05/19/2024 4:34 PM Age: 74 years old Clinical indication: Other: Weakness TECHNIQUE: Imaging protocol: Radiologic exam of the chest. Views: 1 view. COMPARISON: 1. CR XR chest 1V portable [id number] 08/06/2023 12:25 PM 2. CR XR chest 1V portable [id number] 08/28/2020 10:14 PM FINDINGS: Lungs: Lungs are mildly hyperinflated. No focal infiltrate is identified. Pleural spaces: Unremarkable. No pleural effusion. No pneumothorax. Heart/Mediastinum: Heart is within normal limits of size. Bones/joints: There are degenerative changes in the thoracic spine with mild scoliosis concave to the left. XR/XR chest 1V portable [id number] IMPRESSION: No acute infiltrate. No significant change from prior examinations.
--- NOTE | 2024-05-19 16:37 | ED_ITS ---
HPI - Weakness 2 General: Chief complaint: Weakness Stated complaint: neck pain, back pain, nausea Time Seen by Provider: 05/19/24 16:27 Source: patient Mode of arrival: ambulatory Limitations: no limitations History of Present Illness: 74-year-old male who is here with multip le complaints states has been having severe neck and back pain for the last week. He states he has chronic neck and back pain but it has been worsening and his oxycodone has not really helped he rates that pain a 7 out of 10 states he is just felt ill as well and had some fatigue he had a stroke about a year ago states he has some slurred speech at baseline but states he feels like it is worsening he is able to talk clearly here and answer all my questions appropriately denies any focal weakness he denies headache denies chest pain Associated symptoms: Denies chest pain, chills, dysuria, fever(s), headache(s), nausea or vomiting Review of Systems 2 Const: Reports: body aches and malaise; Denies: fever(s), chills or change in appetite ENMT: Denies: throat pain or dental pain Card: Denies: chest pain Resp: Denies: dyspnea GI: Denies: abdominal pain, nausea, vomiting or diarrhea : Denies: dysuria Musc: Reports: neck pain and back pain Skin/Breast: Denies: rash Neuro: Denies: headache(s) PFSH ED 2 PFSH: Social History Smoking and tobacco/nicotine status: current every day tobacco/nicotine user Physical Exam 2 Const: COMMON NORMALS: no acute distress, patient oriented x3, healthy appearing and alert ORIENTATION/CONSCIOUSNESS: Yes oriented to person, Yes oriented to place and Yes oriented to time HENMT: COMMON NORMALS: normocephalic and atraumatic HEAD & SCALP: n ormocephalic and atraumatic Eye: COMMON NORMALS: Equal, round and reactive pupils present and EOMs intact bilaterally PUPIL: Yes Equal, round and reactive pupils present Neck/C-Spine: COMMON NORMALS: full ROM and supple Chest: COMMONS NORMALS: normal inspection of the chest Resp: COMMON NORMALS: normal respiratory effort, No retractions, No use of accessory muscles and clear to auscultation bilaterally AUSCULTATION: clear to auscultation bilaterally Cardio: COMMON NORMALS: regular rate, regular rhythm and No murmurs present (Cardio) RATE: regular rate RHYTHM: regular rhythm GI: COMMON NORMALS: Normal to inspection, nondistended, normoactive bowel sounds present, Soft to palpation, non-tender and no masses PALPATION: Yes Soft to palpation Extremity: COMMON NORMALS: normal to inspection and full ROM Neuro: COMMON NORMALS: patient oriented x3, moves all extremities and no focal motor deficits SENSORIUM/ORIENTATION: Yes alert, Yes oriented to person, Yes oriented to place and Yes oriented to time CRANIAL NERVES: Yes CN normal except as noted SPEECH: speech normal GAIT: Yes Normal gait present Psych: COMMON NORMALS: mental status grossly normal, Normal thought process present and cooperative THOUGHT PROCESS: Normal thought process present Skin: COMMON NORMALS: no rashes or lesions noted and no wounds GENERAL SKIN EXAM: no rashes or lesions noted Course 2 Vital Signs: Vital signs: Vital Signs Temperature 98.1 F 05/19/24 16:14 Pulse Rate 57 L 05/19/24 18:00 Respiratory Rate 18 05/19/24 18:00 Blood Pressure 147/69 05/19/24 18:00 Pulse Oximetry 91 05/19/24 18:00 Oxygen Delivery Me thod Room Air 05/19/24 16:14 MDM - Weakness Medical Decision Making Patient presents here with neck and back pain is chronic in nature blood work imaging here is all normal he has no signs of a stroke here he is ambulatory at discharge he was requesting me to refill his pain meds because he had ran out informed he needs to follow-up with his PCP as we do not refill pain meds in the ER. His pain had improved here in the ER. Medical Records I reviewed the patient's medical records. Lab Data I reviewed the patient's lab results. 05/19/24 16:55 05/19/24 16:55 Radiology Impressions Chest X-Ray 05/19/24 16:26 IMPRESSION: No acute infiltrate. No significant change from prior examinations. Head CT 05/19/24 16:26 IMPRESSION: Chronic left hemispheric infarcts. No acute finding. Laboratory Results WBC 7.15 10^3/uL (3.29-11.43) 05/19/24 16:55 RBC 4.85 10^6/uL (3.85-5.65) 05/19/24 16:55 Hgb 14.60 g/dL (11.27-16.99) 05/19/24 16:55 Hct 45.2 % (37-53) 05/19/24 16:55 MCV 93.2 fl (82-101) 05/19/24 16:55 MCH 30.1 pg (27-33) 05/19/24 16:55 MCHC 32.3 g/dL (30-55) 05/19/24 16:55 RDW 12.9 % (12.1-15.1) 05/19/24 16:55 Plt Count 216 10^3/cmm (157-399) 05/19/24 16:55 MPV 10.6 fL (7.4-10.4) H 05/19/24 16:55 Neut % (Auto) 70.9 % 05/19/24 16:55 Lymph % (Auto) 18.6 % 05/19/24 16:55 Harnett % (Auto) 7.3 % 05/19/24 16:55 Eos % (Auto) 2.8 % 05/19/24 16:55 Baso % (Auto) 0.3 % 05/19/24 16:55 Neut # (Auto) 5.07 10^3/uL (1.8-7.7) 05/19/24 16:55 Lymph # (Auto) 1.3 10^3/uL (0.8-4.8) 05/19/24 16:55 Harnett # (Auto) 0.5 10^3/uL (0.2-0.9) 05/19/24 16:55 Eos # (Auto) 0.2 10^3/uL (0.0-0.8) 05/19/24 16:55 Baso # (Auto) 0.0 10^3/uL (0.0-0.1) 05/19/24 16:55 Nucleated RBC % (auto) 0 % 05/19/24 16:55 Nucleated RBCs # 0.0 /100WBC 05/19/24 16:55 Sodium 139 mmol/L (136-145) 05/19/24 16:55 Potassium 4.7 mmol/L (3.5-5.1) 05/19/24 16:55 Chloride 102 mmol/L (98-107) 05/19/24 16:55 Carbon Dioxide 29 mmol/L (22-29) 05/19/24 16:55 Anion Gap 12.7 (5-19) 05/19/24 16:55 BUN 9 mg/dL (8-23) 05/19/24 16:55 Creatinine 0.8 mg/dL (0.7-1.2) 05/19/24 16:55 GFR Calculation Not Reportable 05/19/24 16:55 Glucose 108 mg/dL (65-115) 05/19/24 16:55 POC Glucose 114 mg/dL (70-110) H 05/19/24 16:35 Calculated Osmolality 287 mOsm/kg (285-295) 05/19/24 16:55 Calcium 8.9 mg/dL (8.5-10.5) 05/19/24 16:55 Magnesium 1.8 mg/dL (1.7-2.3) 05/19/24 16:55 Total Bilirubin 0.4 mg/dL (0.15-1.2) 05/19/24 16:55 AST 12 U/L (0-40) 05/19/24 16:55 ALT < 5 U/L (0-41) 05/19/24 16:55 Alkaline Phosphatase 80 U/L (40-130) 05/19/24 16:55 Total Protein 7.0 g/dL (6.6-8.7) 05/19/24 16:55 Albumin 3.7 g/dL (3.5-5.2) 05/19/24 16:55 Globulin 3.3 g/dL (1.3-4.6) 05/19/24 16:55 Lipase 16 U/L (13-60) 05/19/24 16:55 Urine Color Yellow (Yellow) 05/19/24 16:47 Urine Appearance Clear (CLEAR) 05/19/24 16:47 Urine pH 6 (5-7) 05/19/24 16:47 Ur Specific [place] 1.015 (1.005-1.030) 05/19/24 16:47 Urine Protein Neg (Negative) 05/19/24 16:47 Urine Glucose (UA) Norm (Normal) 05/19/24 16:47 Urine Ketones Negative (Negative) 05/19/24 16:47 Urine Blood Neg (Negative) 05/19/24 16:47 Urine Nitrate Negative (Negative) 05/19/24 16:47 Urine Bilirubin Neg (Negative) 05/19/24 16:47 Urine Urobilinogen Norm mg/dL (Negative) 05/19/24 16:47 Ur Leukocyte Esterase Negative (Negative) 05/19/24 16:47 All radiology interpretation(s) finalized by discharge EKG Data EKG 1: I personally reviewed and interpreted this EKG as follows: EKG interpretation date: 05/19/24 EKG interpretation time: 16:33 Interpretation: sinus louis hr [address] or t wave abnormalities qrs 89 qtc 387 Discharge Plan Discharge Patient Disposition: Home Clinical Impression: Back pain, Fatigue Condition: Stable Prescriptions: No Action terazosin 5 mg capsule 5 mg PO DAILY atorvastatin 40 mg tablet 40 mg PO DAILY carvedilol 6.25 mg tablet 6.25 mg PO BID sertraline 100 mg tablet 100 mg PO DAILY oxycodone 10 mg tablet 10 mg PO Q8H PRN (Reason: Pain) Discharge Orders: Discharge ED (Routine); Ordered 05/19/24 Ordered By: Lainey Frey Discharge Diet: Advance as tolerated Discharge Activity: Resume usual activity Patient Instructions: Weakness (ED), Back Pain (ED) Coding Level of Care Code ED Engineering Administrator for Trish Lara
[2024-05-19 16:38] LABS: Glucose Point of Care 114 mg/dL (70-110)
[2024-05-19 16:55] LABS: Add Urine Microscopic? NO; Charge for UA Resulting for Rev
[2024-05-19 17:01] LABS: Bilirubin Urine Neg (Negative); Blood Urine Neg (Negative); Glucose Urine UA Norm (Normal); Ketones Urine Negative (Negative); Leukocyte Esterase Urine Negative (Negative); Nitrate Urine Negative (Negative); Protein Urine Neg (Negative); Specific Gravity, Urine 1.015 (1.005-1.030); Urine Appearance Clear (CLEAR); Urine Color Yellow (Yellow); Urobilinogen Urine Norm (Negative); pH Urine 6 (5-7)
[2024-05-19 17:05] LABS: Basophils % 0.3 %; Eosinophils # 0.2 10^3/uL (0.0-0.8); Eosinophils % 2.8 %; Hematocrit 45.2 % (37-53); Lymphocytes # 1.3 10^3/uL (0.8-4.8); Lymphocytes % 18.6 %; Mean Corpuscular HGB Conc 32.3 g/dL (30-55); Mean Corpuscular Hemoglobin 30.1 pg (27-33); Mean Corpuscular Volume 93.2 fl (82-101); Mean Platelet Volume 10.6 fL (7.4-10.4); Monocytes # 0.5 10^3/uL (0.2-0.9); Monocytes % 7.3 %; Neutrophils # 5.07 10^3/uL (1.8-7.7); Neutrophils % 70.9 %; Nucleated Red Blood Cells % 0 %; Platelet Count 216 10^3/cmm (157-399); Red Blood Count 4.85 10^6/uL (3.85-5.65); Red Cell Distribution Width 12.9 % (12.1-15.1); White Blood Count 7.15 10^3/uL (3.29-11.43)
[2024-05-19] MEDS: ondansetron 2 mg/ML SDV 2 mL 4 MG IVP (17:12)
[2024-05-19 17:13] VITALS: BP 191/92; PULSE 60; RESP 16; RESP 18; O2SAT 94
[2024-05-19] MEDS: morphine 4 mg/mL SDV 1 mL IVP (17:13)
[2024-05-19] MEDS: hyDRALAzine 20 mg/mL INJ 1 mL 10 MG IVP (17:13)
[2024-05-19 17:20] LABS: Alanine Aminotransferase < 5 U/L (0-41); Albumin Level 3.7 g/dL (3.5-5.2); Alkaline Phosphatase 80 U/L (40-130); Aspartate Amino Transferase 12 U/L (0-40); Blood Urea Nitrogen 9 mg/dL (8-23); Calcium 8.9 mg/dL (8.5-10.5); Carbon Dioxide 29 mmol/L (22-29); Chloride 102 mmol/L (98-107); Creatinine Clr Calc Pharmacy 84.3507; Globulin 3.3 g/dL (1.3-4.6); Glucose 108 mg/dL (65-115); Lipase 16 U/L (13-60); Magnesium 1.8 mg/dL (1.7-2.3); Osmolality Calculated 287 mOsm/kg (285-295); Sodium 139 mmol/L (136-145); Total Bilirubin 0.4 mg/dL (0.15-1.2)
--- NOTE | 2024-05-19 17:23 | PC.NURSE ---
PT PLACED ON SPO2, NIBP, AND CM
[2024-05-19 17:30] VITALS: BP 155/72; PULSE 58; RESP 18; O2SAT 91
[2024-05-19 17:50] LABS: Anion Gap 12.7 (5-19); Potassium 4.7 mmol/L (3.5-5.1)
--- NOTE | 2024-05-19 17:51 | PC.NURSE ---
PT AMBULATED TO RESTROOM. STAND BY ASSIST. PT NOTED TO WALK WITH A LIMP. PT REPORTS IT IS FROM THE PAIN AND LYING IN BED
[2024-05-19 18:00] VITALS: BP 147/69; PULSE 57; RESP 18; O2SAT 91
[2024-05-19] MEDS: HYDROcodone-acetaminophen 5-325 mg Tablet 1 TAB PO (18:20)
[2024-05-19 18:37] VITALS: BP 159/75; PULSE 59; RESP 18; O2SAT 92
== END 2024-05-19 18:38 | disposition home or self-care (01) ==
PROVIDERS: Emergency Provider Emergency Medicine
DX: R53.83 Other fatigue (principal); M54.9 Dorsalgia, unspecified; R00.1 Bradycardia, unspecified; Z72.0 Tobacco use
CPT/HCPCS: 36415; 36416; 70450; 71045; 80053; 81003; 82962; 83690; 83735; 85025; 93005; 96374; 96375; 99285; J0360; J2270; J2405

== ENCOUNTER 2024-06-18 22:41 | Inpatient (IN) | payer MEDICARE, MEDICAID, SELFPAY ==
--- NOTE | 2024-06-18 22:12 | USCV_ITS ---
Naveen Vora Age: 74 Gender: M : 1950 Exam Date: 06/18/2024 23:47 Ordering Phys: Laura Aponte MD Technologist: CL Exam Location: [facility] [place] Indication: cva, Bubble Study is Ordered. BP: 173 / 72 HR: 44 Rhythm: Sinus bradycardia Technical Quality: Adequate MEASUREMENTS (Male / Female) Normal Values 2D ECHO LV Diastolic Diameter PLAX 4.0 cm 4.2 - 5.9 / 3.9 - 5.3 cm IVS Diastolic Thickness 1.2 cm 0.6 - 1.0 / 0.6 - 0.9 cm IVS Systolic Thickness 1.5 cm LVPW Diastolic Thickness 1.3 cm 0.6 - 1.0 / 0.6 - 0.9 cm LVPW Systolic Thickness 1.6 cm LVOT Diameter 2.0 cm LV Ejection Fraction 2D Teich 54.0 % LV Ejection Fraction MOD 4C 49.9 % LV Ejection Fraction MOD 2C 54.5 % LV Ejection Fraction 2C AL 54.4 % LA Diameter 3.3 cm Aorta at Sinotubular Diameter 2.8 cm IVC Diameter 1.4 cm M-MODE LA Ao Ratio MM 0.9 AV Cusp Separation MM 1.9 cm DOPPLER AV Peak Velocity 107.0 cm/s LVOT Peak Velocity 64.0 cm/s AV Area Cont Eq vti 2.5 cm squared AV Area Cont Eq pk 1.8 cm squared MV Peak Velocity 71.0 cm/s MV Area PHT 2.1 cm squared Mitral E to A Ratio 1.2 FINDINGS Left Ventricle Normal left ventricular size, systolic function and wall thickness, with no regional wall motion abnormalities. Grade I/IV diastolic dysfunction (abnormal relaxation filling pattern), normal to mildly elevated filling pressures. Left ventricular ejection fraction is estimated at 65 %. Right Ventricle Normal right ventricular size and systolic function. Right Atrium The right atrium is normal in size. Left Atrium The left atrium is normal in size. Mitral Valve Structurally normal mitral valve without significant stenosis or prolapse. There is no mitral regurgitation. Aortic Valve Structurally normal aortic valve without significant sclerosis or stenosis. There is no aortic regurgitation. Tricuspid Valve Structurally normal tricuspid valve without significant stenosis or regurgitation. Pulmonary artery systolic pressure is normal. Pulmonic Valve Structurally normal pulmonic valve without significant stenosis. There is no pulmonic regurgitation. Pericardium Normal pericardium without effusion. Aorta Normal ascending aorta dimension. IVC The inferior vena cava appears normal. CONCLUSIONS Normal left ventricular size, systolic function and wall thickness, with no regional wall motion abnormalities. Grade I/IV diastolic dysfunction (abnormal relaxation filling pattern), normal to mildly elevated filling pressures. Left ventricular ejection fraction is estimated at 65 %. Bubble study postponed due to lack of IV access No significant change since the prior echocardiogram study of 07/07/19 Dr. Amish Alva MD (Electronically Signed) Final Date: 19 June 2024 13:01 S
[2024-06-18 23:02] VITALS: BMI 22.8
[2024-06-18 23:15] LABS: Troponin(5th) Baseline 14 ng/L (0-15)
--- NOTE | 2024-06-18 23:16 | ECG_ITS ---
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 Measurements Intervals Jean Rate: 42 P: 94 IN: 173 QRS: 56 QRSD: 97 T: 82 QT: 482 QTc: 406 Interpretive Statements SINUS BRADYCARDIA MINIMAL VOLTAGE CRITERIA FOR LVH, CONSIDER NORMAL VARIANT [MEETS CRITERIA IN ONE OF: R(aVL), S(V1), R(V5), R(V5/V6)+S(V1)] Compared to ECG 05/19/2024 16:33:07 No significant changes Electronically Signed On 06-19-2024 7:00:27 CDT by Soy Astorga M.D. [email or web address] sunflower medical [email or web address] Systemsuniversity hospitals [facility].[employer]/store/OM/[id number]
[2024-06-18 23:26] LABS: Estmated Average Glucose 117; Hemoglobin A1C 5.7 % (4.0-6.0)
[2024-06-18 23:35] LABS: Vitamin B12 400 pg/mL (232-1245)
[2024-06-19] VITALS (16 sets, daily range): BP systolic 119–181; BP diastolic 70–75; PULSE 41–90; RESP 16–18; TEMP 36.6–36.9; O2SAT 96–98
--- NOTE | 2024-06-19 00:21 | P.HP_ITS ---
Providers/Chief Complaint Admitting Physician: Laura Aponte MD History of Present Illness Naveen Vora is a 74 year old male with pmh of cva/hemorrhagic, residual encephalomalacia, DE, no stent, COPD on 3L, possibly lung cancer, liver cirrhosis, HCV, HLD, chronic smoker, chronic lyons comes in to [facility] ER requesting pain medications to be refilled. He was supposed to have them filled at PCP office but not recently. He has remote hx of IVDU. He states he has chronic right sided upper and lower extremity weakness however does not need a walker or cane to ambulate and can walk without difficulty. He lives alone at home. He states he woke up with some right facial and right arm tingling and weakness more than usual. He has been having these symptoms for more than last 1-2 days. Says he was also having some chest pain everytime he took a deep breath however that has resolved at this time. He went to [facility] [place] and was seen by tele-stroke neurologist, NIH 3 at the time, not a candidate for TPA, CT head obtained w/o any new findings however had chronic encephalomalacia. CTA without new occlusion, chronic HE severe stenosis, moderate stenosis MCA. Large old L sided CVA. Patient takes aspirin, plavix and statin. MRI, and echo, increasing dose of atorvastatin recommended by neurology. Patient transfered to [facility] for above. He also has hx of chronic back pain. Intially on arrival to ER BP 210/93, they allowed permissive HTN. BP improved on its own to 180/84, HR 40's, No evidence of afib so far. Patient seen in room 277, he is a poor historian. Says he has been having tingling in RUE along with slurred speech. Says this is not how i usually talk. Also complains of trouble swallowing larger tablets and says at times he will vomit. Eats regular consistency food. Thinks he is in [place] at a hospital and its maybe 2023. Earlier was only oriented to self when RN was speaking to patient. He is able to move all 4 extremities and has no major gross deficits however also did not let me compelte a neuro exam and stated: I dont want to do all these things right now and I want to rest. You are bothering me. We can do this at a later time. Medications/Allergies Home Medications Medication Instructions Recorded Confirmed Last Taken Type atorvastatin 40 mg tablet 40 mg PO DAILY 08/06/23 06/18/24 1 Day Ago History ~06/17/24 carvedilol 6.25 mg tablet 6.25 mg PO BID 08/06/23 06/18/24 1 Day Ago History ~06/17/24 oxycodone 10 mg tablet 10 mg PO Q8H PRN Pain 08/06/23 06/18/24 1 Day Ago History ~06/17/24 sertraline 100 mg tablet 100 mg PO DAILY 08/06/23 08/06/23 08/06/23 History terazosin 5 mg capsule 5 mg PO DAILY 08/06/23 08/06/23 08/06/23 History Allergies Allergy/AdvReac Type Severity Reaction Status Date / Time acetaminophen [From Tylenol] Allergy ADR-Gastrointestinal Verified 04/24/20 18:53 Upset aspirin Allergy ADR-Gastrointestinal Verified 04/24/20 18:53 Upset PFSH Acute PFSH: Social History Smoking and tobacco/nicotine status: current every day tobacco/nicotine user Vitals/I&O/Wt Weight last 48 hrs Weight 70.307 kg Physical Exam 2 Narrative: NAD, on 3L NC at this time, Neuro: CN tested are intact, patient not wanting to partcipate further, Was able to lift arms and legs off bed, no drift noted. RUE weaker than LUE, RLE Weaker than LLE. Symmetrical face, no gross droop noted. Speech somewhat slurred but at times clear. Lungs mainly clear, diminished at bases, no gross wheezes abdomen soft, non tender Extermities: Muscle wasting noted, no edema, no cyanosis. A&P Assessment and plan (1) Stroke: (2) COPD (chronic obstructive pulmonary disease): (3) Oxygen dependent: (4) HLD (hyperlipidemia): (5) Liver cirrhosis: (6) Hepatitis C: (7) Hypertension: (8) History of myocardial infarction: (9) Coronary artery disease: (10) Encephalomalacia: (11) Hemorrhagic stroke: (12) Chronic, continuous use of opioids: (13) Chronic pain: Qualifiers: Chronic pain type: chronic pain syndrome Qualified Code(s): G89.4 - Chronic pain syndrome Plan #Stroke #Hx of hemorrhagic stroke #Slurred speech, tingling possibly 2/2 to above vs opioid use #Chronic pain #On chronic opioids #Hx of DE, CAD, no stents #HLD #COPD on 3L, possibly lung cancer, liver cirrhosis, HCV, HLD, chronic smoker, - Does not want nicotine patch at this time - Continue aspirin, plavix, atorvastatin 80 - place on telemetry - check echo with bubble - check mri brain w/o contrast in am - check carotid dopplers - duoneb q6h prn - says he is on 2 inhalers at home however does not know his meds. - place on pulmicort bid - allow permissive HTN - hold home coreg - says he takes oxycodone 10 mg tid. Will give one time dose now. - Home meds need to be verified in AM - denies being diabetic. Unable to tell me a lot, very poor historian. - Diarrhea: monitor at this time. Will hold on ordering stool studies. - Check PT/OT, patient lives alone but says is interested in SNF if needed. check tsh, hba1c, lipid profile Full Code DVT PPX: heparin subc Bid We are to contact sister Rosemarie Luong incbrody of emergencies as per patient. Attestations Medical Necessity Statement*: > 48 hour stay for workup of stroke Diagnoses Stroke I63.9 COPD (chronic obstructive pulmonary disease) J44.9 Oxygen dependent Z99.81 HLD (hyperlipidemia) E78.5 Liver cirrhosis K74.60 Hepatitis C B19.20 Hypertension I10 History of myocardial infarction I25.2 Coronary artery disease I25.10 Encephalomalacia G93.89 Hemorrhagic stroke I61.9 Chronic, continuous use of opioids F11.90 Chronic pain G89.4 Chronic pain type: chronic pain syndrome
[2024-06-19 01:17] LABS: Troponin 5 2HR 10.33 ng/L (0-15); Troponin 5 2HR Delta -3.67 ABS# (0-10)
[2024-06-19] MEDS: sodium chloride 0.9% 1,000 ML 75 ML IV ×2 (01:18→19:49)
[2024-06-19] MEDS: oxyCODONE 5 mg IR Tab/Cap PO (01:19)
[2024-06-19] MEDS: lisinopril 10 mg Tablet PO ×2 (01:19→08:41)
--- NOTE | 2024-06-19 01:29 | XR_ITS ---
WS: [id number] Chest, AP portable, 06/19/2024 Chief complaint: History of lung cancer by patient Comparison: Portable chest, 05/19/2024 Findings: No nodules, masses or effusions are seen. The heart is normal. There is no pneumonia or pneumothor ax. The aortic arch shows mild tortuosity. The diaphragms are flattened. There is a mild dextrosco liosis. Monitor leads are on the chest wall. XR/XR chest 1V portable [id number] Impression: Atherosclerosis and hyperinflation.
--- NOTE | 2024-06-19 02:19 | ECG_ITS ---
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 Measurements Intervals Morton Rate: 40 P: 58 MO: 178 QRS: 65 QRSD: 91 T: 79 QT: 487 QTc: 402 Interpretive Statements SINUS BRADYCARDIA Compared to ECG 06/18/2024 23:16:53 No significant changes Electronically Signed On 06-19-2024 6:59:50 CDT by Soy Astorga M.D. [email or web address] GROUPalliance health centerNewCloud Networkscleveland clinic akron general lodi hospitalAndroJek/store/OM/[id number]/[id number]
[2024-06-19] MEDS: morphine 4 mg/mL SDV 1 mL 2 MG IVP (02:56)
[2024-06-19 04:50] LABS: Basophils % 0.2 %; Eosinophils # 0.1 10^3/uL (0.0-0.8); Eosinophils % 0.6 %; Hematocrit 43.8 % (37-53); Mean Corpuscular HGB Conc 32.4 g/dL (30-55); Mean Corpuscular Hemoglobin 29.5 pg (27-33); Mean Corpuscular Volume 91.1 fl (82-101); Mean Platelet Volume 10.3 fL (7.4-10.4); Monocytes # 0.7 10^3/uL (0.2-0.9); Monocytes % 7.7 %; Neutrophils # 6.64 10^3/uL (1.8-7.7); Neutrophils % 70.1 %; Nucleated Red Blood Cells % 0 %; Platelet Count 182 10^3/cmm (157-399); Red Blood Count 4.81 10^6/uL (3.85-5.65); Red Cell Distribution Width 13.1 % (12.1-15.1); White Blood Count 9.48 10^3/uL (3.29-11.43)
[2024-06-19 05:00] LABS: Lactic Sepsis W/Reflex 0.8 mmol/L (0.5-2.2); Troponin 5 6HR 11.49 ng/L (0-15); Troponin 5 6HR Delta -2.51 ng/L (0-12)
[2024-06-19 05:01] LABS: Anion Gap 16.8 (5-19); Blood Urea Nitrogen 13 mg/dL (8-23); Calcium 8.8 mg/dL (8.5-10.5); Carbon Dioxide 23 mmol/L (22-29); Chloride 100 mmol/L (98-107); Creatinine Clr Calc Pharmacy 83.2797; Glucose 93 mg/dL (65-115); Magnesium 1.9 mg/dL (1.7-2.3); Osmolality Calculated 282 mOsm/kg (285-295); Potassium 3.8 mmol/L (3.5-5.1); Sodium 136 mmol/L (136-145)
[2024-06-19 05:05] LABS: Procalcitonin 0.02 ng/mL (0-0.5); Thyroid Stimulating Hormone 2.08 uIU/mL (0.27-4.20)
--- NOTE | 2024-06-19 06:14 | ECG_ITS ---
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 Measurements Intervals Peak Rate: 40 P: 96 MD: 195 QRS: 79 QRSD: 93 T: 88 QT: 497 QTc: 410 Interpretive Statements SINUS BRADYCARDIA Compared to ECG 06/19/2024 02:19:35 No significant changes Electronically Signed On 06-19-2024 7:02:17 CDT by Soy Astorga M.D. [email or web address].[address] josephOptMed/store/OM/[id number]
--- NOTE | 2024-06-19 07:00 | MRR_ITS ---
PROCEDURE INFORMATION: Exam: MR Head Without Contrast Exam date and time: 06/19/2024 9:49 AM Age: 74 years old Clinical indication: Condition or disease; Other: CVA TECHNIQUE: Imaging protocol: Magnetic resonance imaging of the head without contrast. COMPARISON: CT angio headneck* [id number] 06/18/2024 3:40 PM FINDINGS: Brain: Chronic infarcts are identified in the left middle cerebral artery and left posterior cerebral artery distribution. There is mild small vessel disease. There is no evidence of acute parenchymal hemorrhage, extra-axial collection, or acute infarction. There is no mass effect, midline shift, or downward herniation. Cerebral ventricles: Normal. No ventriculomegaly. Bones: Unremarkable. Paranasal sinuses: Normal as visualized. No acute sinusitis. Mastoid air cells: Normal as visualized. No mastoid effusion. Orbital cavities: Unremarkable. Soft tissues: Unremarkable. MR/MR head wo con* [id number] IMPRESSION: 1. No evidence of acute infarct. 2. Chronic infarcts in the left middle cerebral artery and left posterior cerebral artery distribution.
[2024-06-19] MEDS: heparin 5,000 unit/mL INJ 1 mL 5000 UNIT SUBCUT ×2 (07:21→17:43)
[2024-06-19] MEDS: atorvastatin 40 mg Tablet 80 MG PO (08:41)
[2024-06-19] MEDS: aspirin 81 mg EC Tablet PO (08:41)
[2024-06-19] MEDS: oxyCODONE-APAP 10-325 mg Tablet 1 TAB PO (08:41)
[2024-06-19] MEDS: amlodipine 10 mg Tablet PO (08:41)
[2024-06-19] MEDS: clopidogrel 75 mg Tablet PO (08:41)
[2024-06-19] MEDS: ipratropium-albuterol 3 mL Neb INHALATION (08:52)
--- NOTE | 2024-06-19 08:58 | CTR_ITS ---
PROCEDURE INFORMATION: Exam: CT Abdomen And Pelvis Without Contrast Exam date and time: 06/19/2024 10:10 AM Age: 74 years old Clinical indication: Other: Diarrhea; Prior surgery; Surgery date: 6+ months; Surgery type: Gb; Additional info: Ken TECHNIQUE: Imaging protocol: Computed tomography of the abdomen and pelvis without contrast. Radiation optimization: All CT scans at this facility use at least one of these dose optimization techniques: automated exposure control; mA and/or kV adjustment per patient size (includes targeted exams where dose is matched to clinical indication); or iterative reconstruction. COMPARISON: CR XR hip RT 2-3V wo/w pel* [id number] 07/17/2020 1:59 AM RADIATION DOSE METRICS: Total DLP (mGy-cm): 403.81 FINDINGS: Lungs: Mild basilar scar versus atelectasis. There is also some mild reticulation in the right lung base subjacent to mildly elevated right hemidiaphragm. Coronary arteries: Coronary artery calcifications. Esophagus: Mild mural thickening distal thoracic esophagus. Diaphragm: Small hiatal hernia. Liver: Indeterminate 9 mm hypodensity right hepatic lobe series 4, image 43 anteriorly. Gallbladder and biliary ducts: Prior cholecystectomy. No biliary dilatation. Pancreas: No significant pancreatic pathology. Spleen: No significant splenic pathology. Adrenal glands: No significant adrenal pathology. Kidneys and ureters: No significant renal pathology. Stomach and bowel: Colonic diverticulosis without evidence of focal inflammatory change. Appendix: Appendix within normal limits. Intraperitoneal space: No ascites. Vasculature: No abdominal aortic aneurysm. Lymph nodes: No evidence of lymphadenopathy. Urinary bladder: No urinary calculus or upper tract obstruction. Urinary bladder is nondistended limiting assessment of the wall. Reproductive: Moderate prostatomegaly. Bones/joints: Mild wedge deformity of L1 vertebral body with features suggesting chronic abnormality. No definite acute fracture seen. Degenerative disc disease also present in the spine greatest at L5-S1. Soft tissues: Tiny fat containing umbilical hernia. Small fat containing left inguinal hernia. CT/CT abdomen pelvis wo con [id number] IMPRESSION: 1. No acute pathology. 2. Multiple minor findings noted above.
--- NOTE | 2024-06-19 08:59 | P.PN_ITS ---
Subjective 2 Subjective: PT stating he is sick and has had diarrhea for last 3 days Vitals/I&O/Wt Last Vital Signs Temp 97.8 F 06/19/24 07:41 Pulse 55 L 06/19/24 08:52 Resp 18 06/19/24 08:52 BP 170/72 06/19/24 07:41 Pulse Ox 98 06/19/24 08:52 O2 Del Method Nasal Cannula 06/19/24 08:52 O2 Flow Rate 3 06/19/24 08:52 06/18/24 06/19/24 06/19/24 22:59 06:59 14:59 Intake Total 240 / 240 Output Total 150 / 150 Balance -150 / -150 240 / 240 Weight last 48 hrs Weight 72.575 kg Weight 70.307 kg Physical Exam 2 Narrative: Dehydrated NIh 0 no facial droop numbness of face and right hand backpain awake alert GCS15 s1 s2 abd soft Data 06/19/24 04:16 06/19/24 04:16 A&P Assessment and plan (1) Chronic, continuous use of opioids: (2) Hypertension: (3) Liver cirrhosis: (4) Stroke: (5) Encephalomalacia: (6) COPD (chronic obstructive pulmonary disease): (7) Oxygen dependent: (8) Diarrhea: Plan MRI head is pending, no signs of CVA Diarrhea Dehydrated clinically continue IV fluids till 9 pm and then dc BAck pain Has pain med MD at [facility] Recently moved here 1 month ago In need of a pcp as well resume oxycontin bid 10 mg COPD w/o exacerbation on 2L at [facility] Lives alone DNR DNI discussed w patient HEparin dvt ppx Disposition HOME ON Saturday most likely Having diarrhea today 3 episodes so far chk c diff Attestations 2 Medical Necessity Statement*: ATILIO gamez Coding Level of Care Code Acute Code for Chg Fwd Diagnoses Chronic, continuous use of opioids F11.90 Hypertension I10 Liver cirrhosis K74.60 Stroke I63.9 Encephalomalacia G93.89 COPD (chronic obstructive pulmonary disease) J44.9 Oxygen dependent Z99.81 Diarrhea R19.7
[2024-06-19] MEDS: oxyCODONE 10 mg ER (12 HR) Tablet PO (17:43)
[2024-06-19] MEDS: morphine IR 15 mg Tablet PO (22:30)
[2024-06-20] VITALS (17 sets, daily range): BP systolic 142–197; BP diastolic 68–81; PULSE 42–59; RESP 12–20; TEMP 36.4–36.9; O2SAT 93–99
[2024-06-20 04:21] LABS: Anion Gap 10.7 (5-19); Blood Urea Nitrogen 11 mg/dL (8-23); Calcium 8.7 mg/dL (8.5-10.5); Carbon Dioxide 27 mmol/L (22-29); Chloride 108 mmol/L (98-107); Creatinine Clr Calc Pharmacy 84.3507; Glucose 79 mg/dL (65-115); Osmolality Calculated 292 mOsm/kg (285-295); Potassium 3.7 mmol/L (3.5-5.1); Sodium 142 mmol/L (136-145)
[2024-06-20] MEDS: ipratropium-albuterol 3 mL Neb INHALATION ×2 (04:33→08:15)
[2024-06-20] MEDS: morphine IR 15 mg Tablet PO ×3 (04:38→21:31)
[2024-06-20] MEDS: heparin 5,000 unit/mL INJ 1 mL 5000 UNIT SUBCUT ×2 (06:01→18:02)
[2024-06-20] MEDS: oxyCODONE 10 mg ER (12 HR) Tablet PO ×2 (08:49→18:01)
[2024-06-20] MEDS: clopidogrel 75 mg Tablet PO (08:52)
[2024-06-20] MEDS: lisinopril 10 mg Tablet PO (08:52)
[2024-06-20] MEDS: amlodipine 10 mg Tablet PO (08:52)
[2024-06-20] MEDS: atorvastatin 40 mg Tablet 80 MG PO (08:52)
--- NOTE | 2024-06-20 11:56 | P.PN_ITS ---
Subjective 2 Subjective: Reports that he still feels bad. Having body aches and says that he is sick to his stomach. Denies V/D at this time. Says that he continues to have pain and has been getting pain medication regularly. Medications: Reviewed: Yes Vitals/I&O/Wt Last Vital Signs Temp 98.0 F 06/20/24 11:23 Pulse 52 L 06/20/24 11:23 Resp 16 06/20/24 11:23 BP 165/81 06/20/24 11:23 Pulse Ox 93 06/20/24 11:23 O2 Del Method Room Air 06/20/24 11:23 O2 Flow Rate 3 06/20/24 08:00 06/19/24 06/20/24 06/20/24 22:59 06:59 14:59 Intake Total 440 / 1920 1360 / 1360 Output Total 300 / 300 Balance 440 / 1920 -300 / 1620 1360 / 1360 Weight last 48 hrs Weight 156 lb 6.4 oz Weight 160 lb Weight 155 lb Physical Exam 2 Narrative: General: Cooperative patient in no apparent distress. Well developed. HEENT: Normocephalic, Atraumatic. External ears normal. Nasal passages patent without drainage. MMM. Heart: RRR. Bradycardic. Resp: LCTA. No respiratory distress, no use of accessory muscles. Abd: Soft, non-tender. Non-distended. Extremities: No edema. Skin: No rash or lesions on exposed areas. Neuro: No focal motor or sensory loss. Data 06/19/24 04:16 06/20/24 03:33 A&P Assessment and plan (1) Chronic, continuous use of opioids: (2) Hypertension: (3) Liver cirrhosis: (4) Stroke: (5) Encephalomalacia: (6) COPD (chronic obstructive pulmonary disease): (7) Oxygen dependent: (8) Diarrhea: Plan 74 y/o M admitted for stroke-like symptoms and chronic pain. Continue close inpatient monitoring. Continues to report having a lot of pain. He reports that he doesn't feel right and that he feels he is getting sick. MRI head showed chronic infarcts of MCA and Left posterior circulation. No acute noted. No other signs of CVA on examination. Diarrhea improving today. he does not appear dehydrated at this time. Labs normal Will need PCP and pain management referral. Continue oxycontin BID for pain. Will recheck AM labs and can likely discharge tomorrow if remains stable. Reports that he does have a history of Hepatitis C. Continue Heparin for VTE PPx. Code Status: AND IVF: None DVT PPx: Heparin GI PPx: famotidine. ABx: None Diet: Cardiac CC Discharge plan: Home when appropriate. Attestations 2 Medical Necessity Statement*: Will need one further stay in hospital for pain management, arrangement of discharge, referrals, recheck labs in am. Coding Level of Care Code Acute Code for Chg Fwd Straight Forward/Low MDM includes number and complexity of problems actively addressed during encounter, amount and/or complexity of data reviewed/ordered and described risk of complication, morbidity or mortality of management as documented Diagnoses Chronic, continuous use of opioids F11.90 Hypertension I10 Liver cirrhosis K74.60 Stroke I63.9 Encephalomalacia G93.89 COPD (chronic obstructive pulmonary disease) J44.9 Oxygen dependent Z99.81 Diarrhea R19.7
[2024-06-20] MEDS: nicotine 14 mg Patch 1 PATCH TRANSDERMA (11:58)
[2024-06-20] MEDS: famotidine 20 mg Tablet PO (20:34)
[2024-06-20 23:35] LABS: Hepatitis C Virus Antibody Reactive (Nonreactive)
[2024-06-21] VITALS (14 sets, daily range): BP systolic 146–178; BP diastolic 38–84; PULSE 44–70; RESP 12–93; TEMP 36.4–36.9; O2SAT 84–98
[2024-06-21] MEDS: morphine IR 15 mg Tablet PO ×2 (03:41→14:25)
[2024-06-21 04:06] LABS: Basophils % 0.6 %; Eosinophils # 0.2 10^3/uL (0.0-0.8); Hematocrit 42.9 % (37-53); Lymphocytes # 2.1 10^3/uL (0.8-4.8); Lymphocytes % 31.6 %; Mean Corpuscular HGB Conc 31.5 g/dL (30-55); Mean Corpuscular Hemoglobin 29.7 pg (27-33); Mean Corpuscular Volume 94.5 fl (82-101); Mean Platelet Volume 10.6 fL (7.4-10.4); Monocytes # 0.7 10^3/uL (0.2-0.9); Neutrophils # 3.63 10^3/uL (1.8-7.7); Neutrophils % 54.5 %; Nucleated Red Blood Cells % 0 %; Platelet Count 167 10^3/cmm (157-399); Red Blood Count 4.54 10^6/uL (3.85-5.65); Red Cell Distribution Width 13.2 % (12.1-15.1); White Blood Count 6.67 10^3/uL (3.29-11.43)
[2024-06-21 04:30] LABS: Alanine Aminotransferase 6 U/L (0-41); Albumin Level 3.6 g/dL (3.5-5.2); Alkaline Phosphatase 80 U/L (40-130); Aspartate Amino Transferase 11 U/L (0-40); Blood Urea Nitrogen 13 mg/dL (8-23); Carbon Dioxide 28 mmol/L (22-29); Chloride 105 mmol/L (98-107); Creatinine Clr Calc Pharmacy 83.5796; Globulin 2.9 g/dL (1.3-4.6); Glucose 80 mg/dL (65-115); Osmolality Calculated 295 mOsm/kg (285-295); Sodium 143 mmol/L (136-145); Total Bilirubin 0.3 mg/dL (0.15-1.2); Total Protein 6.5 g/dL (6.6-8.7)
[2024-06-21 04:33] LABS: Anion Gap 14.2 (5-19); Potassium 4.2 mmol/L (3.5-5.1)
[2024-06-21] MEDS: heparin 5,000 unit/mL INJ 1 mL 5000 UNIT SUBCUT (06:28)
[2024-06-21] MEDS: clopidogrel 75 mg Tablet PO (09:53)
[2024-06-21] MEDS: atorvastatin 40 mg Tablet 80 MG PO (09:53)
[2024-06-21] MEDS: sennosides-docusate Tablet 1 TAB PO (09:53)
[2024-06-21] MEDS: oxyCODONE 10 mg ER (12 HR) Tablet PO ×2 (09:53→18:59)
[2024-06-21] MEDS: nicotine 14 mg Patch 1 PATCH TRANSDERMA (09:56)
--- NOTE | 2024-06-21 12:05 | PC.NURSE ---
Notified Dr. Lizama of Blood Pressure 146/[address] Lizama gave orders to hold Amlodipine and lisinopril.
--- NOTE | 2024-06-21 13:53 | P.DS_ITS ---
Discharge Providers Date of Admission: 06/20/24 19:35 Date of Discharge: June 21, 2024 Attending Provider at Admission: Laura Aponte MD Attending Provider at Discharge: Kelly Lizama MD Diagnoses at Discharge Discharge Diagnosis (1) Chronic, continuous use of opioids: Status: Acute (2) Hypertension: Status: Acute (3) Liver cirrhosis: Status: Acute (4) Stroke: Status: Acute (5) Encephalomalacia: Status: Acute (6) COPD (chronic obstructive pulmonary disease): Status: Acute (7) Oxygen dependent: Status: Acute (8) Diarrhea: Status: Acute Hospital Course Hospital Course Patient brought to the hospital with right-sided numbness tingling in upper and lower extremity. 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 He presented from [facility]. NIH was 3 at the time of his arrival to the hospital patient was not a candidate for tPA. CTA head and neck did not show any new occlusions and showed chronic HE severe stenosis moderate stenosis MCA. Neurology recommended patient continue to take aspirin Plavix statin and transferred to [facility] for MRI. Initially permissive hypertension was allowed. Patient had MRI done at our facility which showed no evidence of acute infarct. Chronic infarcts in left middle cerebral artery and left posterior tibial artery distribution. Abdomen pelvis showed no acute pathology, multiple minor findings noted above. Patient did complain of diarrhea upon arrival however that has self resolved. No antibiotics have been given. His numbness tingling in right upper extremity is most likely secondary to radiculopathy at this point. Patient does have a history of IV drug abuse. He does go to hospital to get pain medication refilled and that is his initial presentation at [facility]. He has been getting pain medications during hospitalization. He takes oxycodone 10 mg 3 times daily at home. However we have reduced that to 10 mg twice daily at this point. Patient is stable diarrhea has resolved. He has chronic right sided weakness however is able to walk on his own. He will be discharged home in stable condition at this point. Patient agreeable to above plan. I will give him 3-day supply of his opioid prescription at this point. Patient to follow-up with primary care doctor for further prescription. Of note patient has been bradycardic during hospitalization with rates 40s to low 50s. I would hold off on carvedilol 6.25 twice daily. Patient to follow-up with primary care doctor for further evaluation. Additionally patient was evaluated by physical therapy and home exercise program has been recommended at this time. He is at baseline 2 L nasal cannula. Physical Exam Narrative: NAD, on 3L NC at this time, Neuro: CN tested are intact, able to move all 4 extremities, Symmetrical face, no gross droop noted. Speech very clear, no focal deficits Lungs mainly clear, diminished at bases, no gross wheezes abdomen soft, non tender Extermities: Muscle wasting noted, no edema, no cyanosis. Discharge Data Studies Completed and Pending Completed Studies During Hospitalization Category Date Time Status CT abdomen pelvis wo con [id number] Stat Cat Scan 06/19/24 08:58 Completed XR chest 1V portable [id number] Routine Exams 06/19/24 01:29 Completed MR head wo con* [id number] Routine MRI 06/19/24 07:00 Completed CV. echo lmt wo/w bubble [id number] Routine Ultrasound 06/18/24 22:12 Completed Pending at discharge Category Date Time Status CBC Auto Diff [Complete Blood Count w/Auto] AM LABS Lab 06/21/24 04:00 Ordered CDIFF [C.Diff PCR (Lab)] Routine Lab 06/19/24 09:05 Uncollected CMP [Comprehensive Metabolic Panel] AM LABS Lab 06/21/24 04:00 Ordered CRP [C Reactive Protein] AM LABS Lab 06/21/24 04:00 Ordered Drug Screen, Urine AM LABS Lab 06/20/24 22:57 Ordered Hepatitis C RNA Viral Load Qnt AM LABS Lab 06/20/24 04:16 Received Magnesium AM LABS Lab 06/21/24 04:00 Ordered Radiology Impressions Chest X-Ray 06/19/24 01:29 Impression: Atherosclerosis and hyperinflation. Head MRI 06/19/24 07:00 IMPRESSION: 1. No evidence of acute infarct. 2. Chronic infarcts in the left middle cerebral artery and left posterior cerebral artery distribution. Abdomen/Pelvis CT 06/19/24 08:58 IMPRESSION: 1. No acute pathology. 2. Multiple minor findings noted above. Laboratory Results WBC 9.48 10^3/uL (3.29-11.43) 06/19/24 04:16 RBC 4.81 10^6/uL (3.85-5.65) 06/19/24 04:16 Hgb 14.20 g/dL (11.27-16.99) 06/19/24 04:16 Hct 43.8 % (37-53) 06/19/24 04:16 MCV 91.1 fl (82-101) 06/19/24 04:16 MCH 29.5 pg (27-33) 06/19/24 04:16 MCHC 32.4 g/dL (30-55) 06/19/24 04:16 RDW 13.1 % (12.1-15.1) 06/19/24 04:16 Plt Count 182 10^3/cmm (157-399) 06/19/24 04:16 MPV 10.3 fL (7.4-10.4) 06/19/24 04:16 Neut % (Auto) 70.1 % 06/19/24 04:16 Lymph % (Auto) 21.0 % 06/19/24 04:16 [place] % (Auto) 7.7 % 06/19/24 04:16 Eos % (Auto) 0.6 % 06/19/24 04:16 Baso % (Auto) 0.2 % 06/19/24 04:16 Neut # (Auto) 6.64 10^3/uL (1.8-7.7) 06/19/24 04:16 Lymph # (Auto) 2.0 10^3/uL (0.8-4.8) 06/19/24 04:16 [place] # (Auto) 0.7 10^3/uL (0.2-0.9) 06/19/24 04:16 Eos # (Auto) 0.1 10^3/uL (0.0-0.8) 06/19/24 04:16 Baso # (Auto) 0.0 10^3/uL (0.0-0.1) 06/19/24 04:16 Nucleated RBC % (auto) 0 % 06/19/24 04:16 Nucleated RBCs # 0.0 /100WBC 06/19/24 04:16 Sodium 142 mmol/L (136-145) 06/20/24 03:33 Potassium 3.7 mmol/L (3.5-5.1) 06/20/24 03:33 Chloride 108 mmol/L (98-107) H 06/20/24 03:33 Carbon Dioxide 27 mmol/L (22-29) 06/20/24 03:33 Anion Gap 10.7 (5-19) 06/20/24 03:33 BUN 11 mg/dL (8-23) 06/20/24 03:33 Creatinine 0.7 mg/dL (0.7-1.2) 06/20/24 03:33 GFR Calculation Not Reportable 06/20/24 03:33 Glucose 79 mg/dL (65-115) 06/20/24 03:33 Estimat Average Glucose 117 06/18/24 22:43 Hemoglobin A1c 5.7 % (4.0-6.0) 06/18/24 22:43 Calculated Osmolality 292 mOsm/kg (285-295) 06/20/24 03:33 Lactic Acid 0.8 mmol/L (0.5-2.2) 06/19/24 04:16 Calcium 8.7 mg/dL (8.5-10.5) 06/20/24 03:33 Magnesium 1.9 mg/dL (1.7-2.3) 06/19/24 04:16 Troponin T Baseline 14 ng/L (0-15) 06/18/24 22:43 Troponin T 120 Minute 10.33 ng/L (0-15) 06/19/24 00:39 Delta Troponin T -3.67 ABS# (0-10) L 06/19/24 00:39 Troponin T Hi Sens 6Hr 11.49 ng/L (0-15) 06/19/24 04:16 Troponin T Hi Sens 6Hr Delta -2.51 ng/L (0-12) L 06/19/24 04:16 Vitamin B12 400 pg/mL (232-1245) 06/18/24 22:43 Procalcitonin 0.02 ng/mL (0-0.5) 06/19/24 04:16 TSH 2.08 uIU/mL (0.27-4.20) 06/19/24 04:16 Hepatitis C Antibody Reactive (Nonreactive) H 06/20/24 04:16 HCV RNA Qnt PCR Amp&Det Cancelled 06/20/24 23:35 HCV RNA (PCR) IUs/ml Cancelled 06/20/24 23:35 HCV RNA (PCR) IU log10 Cancelled 06/20/24 23:35 Vitals Last Vital Signs Temp 98.1 F 06/20/24 23:59 Pulse 49 L 06/20/24 23:59 Resp 12 06/20/24 23:59 BP 169/81 06/20/24 23:59 Pulse Ox 98 06/20/24 23:59 O2 Del Method Room Air 06/20/24 23:59 O2 Flow Rate 3 06/20/24 08:00 Discharge Plan Discharge Patient Disposition: Home Condition: Stable Prescriptions: New amlodipine 10 mg Tablet 10 mg PO DAILY Qty: 30 0RF lisinopril 10 mg Tablet 10 mg PO DAILY Qty: 30 0RF Continued sertraline 25 mg tablet 25 mg PO DAILY fluticasone propion-salmeterol 100-50 mcg/dose blister with device 1 inh INHALATION BID clopidogrel 75 mg tablet 75 mg PO DAILY Qty: 30 0RF Changed atorvastatin 40 mg tablet 80 mg PO DAILY Qty: 30 0RF oxycodone 10 mg tablet 10 mg PO BID PRN (Reason: Pain) Qty: 6 0RF Held carvedilol 6.25 mg tablet 6.25 mg PO BID Hold Instructions: see pcp Discontinued terazosin 5 mg capsule 5 mg PO DAILY Discharge Orders: Discharge Order (Routine); Ordered 06/21/24 Ordered By: Kelly Lizama Referrals: Radha Pimentel MD [Physician] - 2 weeks Bolivar Bailey DO [Physician] - 7-10 days Discharge Diet: Cardiac Discharge Activity: As per PT/OT instructions Patient Instructions: Opioid Safety Activity Restrictions/Additional Instructions: Please see your primary care doctor at the earliest. Discharge Attestations Time Spent in Discharge Care*: greater than 30 min Quality Metrics Clinical Quality Measures [ No reported AMI, CVA or VTE this stay] Coding Level of Care Code 14813 Total time (in minutes) for Discharge: 35 Diagnoses Chronic, continuous use of opioids F11.90 Hypertension I10 Liver cirrhosis K74.60 Stroke I63.9 Encephalomalacia G93.89 COPD (chronic obstructive pulmonary disease) J44.9 Oxygen dependent Z99.81 Diarrhea R19.7
--- NOTE | 2024-06-21 14:10 | PC.SLP ---
SHIP ENGINEER visited with patient today, who states that he will be discharged today. Continue diet as ordered. Please see evaluation report.
[2024-06-21] MEDS: amlodipine 10 mg Tablet PO (14:15)
[2024-06-21] MEDS: lisinopril 10 mg Tablet PO (14:15)
--- NOTE | 2024-06-21 15:35 | PC.NURSE ---
Called [facility] and set up transport ride home..ticket #[phone] they will try car tender
--- NOTE | 2024-06-21 15:48 | PC.NURSE ---
Attempted to call Rosemarie patient's sister to come and pick patient up no answer left a voicemail.
--- NOTE | 2024-06-21 18:45 | PC.NURSE ---
Called [facility] again at this time and they stat they still have not found patient a medicaid ride. Patient updated at this time. Patient property returned to patient at this time. Patient agreed it was all in the envelope and signed for it. Witnessed by this nurse and Olesya KEMP.
--- NOTE | 2024-06-21 18:50 | PC.NURSE ---
Patient is at the desk stating that he wants to leave his family is picking up. Discharge discussed with patient at this time who verbalized understanding. Patient verbalized understanding that he should only take his Oxycontin two times a day. Patient is A&Ox3. Respirations even and non-labored on room air. Patient states, You see I have a prescription for my pain meds waiting for me but I can not get it filled until the first. I was so sick from withdrawal the other day that some how half of my pain medications disappeared and I don't know what happened to it. Patient educated on how to take medications again 1 pill every 12 hours. Patient verbalized understanding. Patient also educated that he has blood pressure medications at the pharmacy. Patient IV was removed by Dinah KEMP.
--- NOTE | 2024-06-21 19:00 | PC.NURSE ---
Patient wheel chaired to private car at this time at his request.
--- NOTE | 2024-06-22 10:27 | PC.NURSE ---
Received a phone call from Sarahy on behalf of [facility] in [facility] and she states that on the Atorvastatin that was written on 06/21, patient's insurance won't pay for 40 mg 2 tablets daily, but will pay for 80 mg 1 tablet PO daily. I approved this change on behalf of Dr. Lizama.
[2024-06-24 12:15] LABS: HEP C RNA Viral Load Quant <1.18 NOT DETECTED Log IU/mL (NOT DETECTED); HEP C RNA Viral Load Quant <15 NOT DETECTED IU/mL (NOT DETECTED)
== END 2024-06-21 19:52 | disposition home or self-care (01) | DRG 65 ==
PROVIDERS: Family Medicine; Admitting Provider Internal Medicine; Visit Provider Internal Medicine
DX: I63.9 Cerebral infarction, unspecified (principal); I69.251 Hemiplegia and hemiparesis following other nontraumatic intracranial hemorrhage affecting right dominant side; M54.10 Radiculopathy, site unspecified; I25.2 Old myocardial infarction; J44.9 Chronic obstructive pulmonary disease, unspecified; F17.210 Nicotine dependence, cigarettes, uncomplicated; Z99.81 Dependence on supplemental oxygen; K74.60 Unspecified cirrhosis of liver; E78.5 Hyperlipidemia, unspecified; G89.4 Chronic pain syndrome; M54.9 Dorsalgia, unspecified; B19.20 Unspecified viral hepatitis C without hepatic coma; I10 Essential (primary) hypertension; I25.10 Atherosclerotic heart disease of native coronary artery without angina pectoris; Z66 Do not resuscitate; R19.7 Diarrhea, unspecified; R00.1 Bradycardia, unspecified; I69.198 Other sequelae of nontraumatic intracerebral hemorrhage; G93.89 Other specified disorders of brain; Z79.891 Long term (current) use of opiate analgesic; R29.703 NIHSS score 3
CPT/HCPCS: 36415; 70551; 71045; 74176; 80048; 80053; 82607; 83036; 83605; 83735; 84145; 84443; 84484; 85025; 86140; 86803; 87522; 92610; 93005; 94640; 96372; 97161; 97165; 97530; C8924; G0378; G0379; J1644; J2270; J7030

== ENCOUNTER 2024-06-26 16:26 | Emergency (ER) | payer MEDICAID, SELFPAY ==
[2024-06-26 16:39] VITALS: BP 196/98; PULSE 55; RESP 18; TEMP 36.8; O2SAT 97; BMI 21.4
--- NOTE | 2024-06-26 16:40 | ECG_ITS ---
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 Measurements Intervals [place] Rate: 54 P: 64 DE: 160 QRS: 69 QRSD: 86 T: 76 QT: 442 QTc: 421 Interpretive Statements SINUS BRADYCARDIA Compared to ECG 06/19/2024 06:14:01 No significant changes Electronically Signed On 06-26-2024 19:58:53 CDT by Radha Hoffmann M.D. [id number]
--- NOTE | 2024-06-26 17:08 | W.ED.CHESTPA ---
HPI - Chest Pain General: Chief Complaint: Chest Pain Stated Complaint: withdrawal, MHE Time Seen by Provider: 06/26/24 16:33 History of Present Illness: 74-year-old man with a history of chronic pain syndrome on chronic narcotic therapy who presents to the emergency room today with withdrawal symptoms. He said he lost his prescription and so he has not had any narcotics i.e. oxycodone in 5 days. He has had nausea and vomiting and diarrhea. Weakness. He started having some chest pain today so he came to the emergency room. Apparently had a observation for chest pain rule out a few days back. He takes medications for hypertension. He is also on Plavix. And atorvastatin. No altered mental status. No focal motor deficits. No focal abdominal pain. He describes a pressure in his chest. Review of Systems Narrative: Constitutional symptoms: Negative except as documented in HPI. Skin symptoms: Negative except as documented in HPI. Eye symptoms: Negative except as documented in HPI. ENMT symptoms: Negative except as documented in HPI. Respiratory symptoms: Negative except as documented in HPI. Cardiovascular symptoms: Negative except as documented in HPI. Gastrointestinal symptoms: Negative except as documented in HPI. Genitourinary symptoms: Negative except as documented in HPI. Musculoskeletal symptoms: Negative except as documented in HPI. Neurologic symptoms: Negative except as documented in HPI. Psychiatric symptoms: Negative except as documented in HPI. Endocrine symptoms: Negative except as documented in HPI. [facility] ED PFSH: Social History Smoking and tobacco/nicotine status: current every day tobacco/nicotine user Physical Exam Narrative: EXAM NARRATIVE: General: Alert, no acute distress. Skin: Warm, dry. Head: Normocephalic, atraumatic. Neck: Supple, trachea midline. Eye: Extraocular movements are intact. Ears, nose, mouth and throat: Tacky oral mucosa Cardiovascular: Regular, Normal peripheral perfusion. Respiratory: Lungs are clear to auscultation, respirations are non-labored, breath sounds are equal, Symmetrical chest wall expansion. Gastrointestinal: Soft, Nontender, Non distended Musculoskeletal: Normal ROM, no deformity. Neurological: Alert and oriented, No focal neurological deficit observed. Psychiatric: Cooperative, appropriate mood & affect. Course Vital Signs: Vital signs: Vital Signs Temperature 98.2 F 06/26/24 16:39 Pulse Rate 60 06/26/24 18:42 Respiratory Rate 18 06/26/24 18:42 Blood Pressure 184/78 06/26/24 19:03 Pulse Oximetry 97 06/26/24 18:42 MDM - Chest Pain Medical Decision Making Medical decision making: Differential diagnosis including but not limited to and based on the above HPI, review of systems and physical exam: Basic lab work, lipase, urinalysis. Drug screen. Did have concern for things other than just withdrawal causing his symptoms such as UTI or pancreatitis. But have concern for renal failure etc. Also with him having chest pain we will get an EKG and serial cardiac markers Orders placed to evaluate differential diagnosis based on the above differential, HPI and physical exam EKG: Time 1638. Rate 54. Sinus bradycardia, No ST-T changes, no ectopy, normal TN & QRS intervals, This was reviewed and interpreted by myself the ER physician at 1640. Lab Review: Laboratory results were reviewed and interpreted by myself the emergency room physician. Troponin negative. Labs are unremarkable. I reviewed the patient's medical record. Reexamination: Patient's blood pressure has improved some. I am giving some clonidine. Discussed with him that I cannot and will not write for any further opiates. He was just in the hospital and he was told to follow with his pain doctor. I instructed that if his medications were lost he needs to talk to his primary about it. Consultation: I spoke with hospitalist on-call. They are familiar with this patient. They said they did an extensive workup and and found nothing as far as cardiac or stroke workup goes. He states become more more apparent that he may be drug-seeking. Assessment and plan: Opiate dependence Opiate withdrawal Hypertension Dehydration -I gave the patient a dose of oxycodone here. Normal saline bolus. IV Zofran. And some clonidine for his blood pressure. Have called in some clonidine, some Zofran and some hydroxyzine which should help some with his withdrawal symptoms. - Discharged home - Discussed findings and plan with patient. Answered any questions. - All laboratory values were reviewed and interpreted personally by myself, the ER physician - All imaging was reviewed and interpreted personally by myself, the ER physician. - Evaluation and treatment of this problem were appropriate in the emergency setting Lab Data 06/26/24 18:36 06/26/24 17:10 Laboratory Results WBC 10.33 10^3/uL (3.29-11.43) 06/26/24 18:36 Corrected WBC Cancelled 06/26/24 17:10 RBC 5.15 10^6/uL (3.85-5.65) 06/26/24 18:36 Hgb 15.20 g/dL (11.27-16.99) 06/26/24 18:36 Hct 46.6 % (37-53) 06/26/24 18:36 MCV 90.5 fl (82-101) 06/26/24 18:36 MCH 29.5 pg (27-33) 06/26/24 18:36 MCHC 32.6 g/dL (30-55) 06/26/24 18:36 RDW 13.0 % (12.1-15.1) 06/26/24 18:36 Plt Count 213 10^3/cmm (157-399) 06/26/24 18:36 MPV 10.3 fL (7.4-10.4) 06/26/24 18:36 Gran % Cancelled 06/26/24 17:10 Neut % (Auto) 68.9 % 06/26/24 18:36 Lymph % (Auto) 22.8 % 06/26/24 18:36 [place] % (Auto) 6.8 % 06/26/24 18:36 Eos % (Auto) 0.7 % 06/26/24 18:36 Baso % (Auto) 0.4 % 06/26/24 18:36 Neut # (Auto) 7.12 10^3/uL (1.8-7.7) 06/26/24 18:36 Lymph # (Auto) 2.4 10^3/uL (0.8-4.8) 06/26/24 18:36 [place] # (Auto) 0.7 10^3/uL (0.2-0.9) 06/26/24 18:36 Eos # (Auto) 0.1 10^3/uL (0.0-0.8) 06/26/24 18:36 Baso # (Auto) 0.0 10^3/uL (0.0-0.1) 06/26/24 18:36 Absolute Gran (auto) Cancelled 06/26/24 17:10 Nucleated RBC % (auto) 0 % 06/26/24 18:36 Nucleated RBCs # 0.0 /100WBC 06/26/24 18:36 Sodium 133 mmol/L (136-145) L 06/26/24 17:10 Potassium 4.3 mmol/L (3.5-5.1) 06/26/24 17:10 Chloride 97 mmol/L (98-107) L 06/26/24 17:10 Carbon Dioxide 22 mmol/L (22-29) 06/26/24 17:10 Anion Gap 18.3 (5-19) 06/26/24 17:10 BUN 16 mg/dL (8-23) 06/26/24 17:10 Creatinine 0.7 mg/dL (0.7-1.2) 06/26/24 17:10 GFR Calculation Not Reportable 06/26/24 17:10 Glucose 98 mg/dL (65-115) 06/26/24 17:10 Calculated Osmolality 277 mOsm/kg (285-295) L 06/26/24 17:10 Lactic Acid 1.2 mmol/L (0.5-2.2) 06/26/24 18:36 Calcium 9.4 mg/dL (8.5-10.5) 06/26/24 17:10 Total Bilirubin 1.0 mg/dL (0.15-1.2) 06/26/24 17:10 AST 12 U/L (0-40) 06/26/24 17:10 ALT 10 U/L (0-41) 06/26/24 17:10 Alkaline Phosphatase 92 U/L (40-130) 06/26/24 17:10 Troponin T Baseline 9 ng/L (0-15) 06/26/24 17:10 Total Protein 7.7 g/dL (6.6-8.7) 06/26/24 17:10 Albumin 4.2 g/dL (3.5-5.2) 06/26/24 17:10 Globulin 3.5 g/dL (1.3-4.6) 06/26/24 17:10 Lipase 64 U/L (13-60) H 06/26/24 17:10 All radiology interpretation(s) finalized by discharge Discharge Plan Discharge Patient Disposition: Home Clinical Impression: Opiate dependence, Hypertension, Drug-seeking behavior, Non-cardiac chest pain Condition: Stable Prescriptions: New clonidine HCl 0.1 mg tablet 0.1 mg PO Q8H PRN (Reason: hypertensive emergency) Qty: 20 0RF Rx Instructions: For Systolic >185 diastolic >100 hydroxyzine HCl 25 mg tablet 25 mg PO Q8H PRN (Reason: withdrawal symptoms) Qty: 20 0RF ondansetron 8 mg tablet,disintegrating 8 mg PO .q6 PRN (Reason: nausea and vomiting) Qty: 14 0RF No Action sertraline 25 mg tablet 25 mg PO DAILY fluticasone propion-salmeterol 100-50 mcg/dose blister with device 1 inh INHALATION BID oxycodone 10 mg tablet 10 mg PO BID PRN (Reason: Pain) Qty: 6 0RF amlodipine 10 mg Tablet 10 mg PO DAILY Qty: 30 0RF atorvastatin 40 mg tablet 80 mg PO DAILY Qty: 30 0RF clopidogrel 75 mg tablet 75 mg PO DAILY Qty: 30 0RF lisinopril 10 mg Tablet 10 mg PO DAILY Qty: 30 0RF carvedilol 6.25 mg tablet 6.25 mg PO BID Hold Instructions: see pcp Discharge Orders: Discharge ED (Routine); Ordered 06/26/24 Ordered By: Alem Frances Discharge Diet: Usual diet Discharge Activity: Increase activity as tolerated Patient Instructions: Narcotic Use Disorder (ED) Activity Restrictions/Additional Instructions: Thank you for choosing [facility] for your healthcare needs today. Please realize this is an emergency room and that we are providing you with a medical screening exam and this may not be complete and all inclusive of all the testing and or work up that you may need to determine your ailment or severity of your illness. You have been screened and evaluated and felt safe for discharge. Health conditions do change or evolve sometimes and as such it is important that you follow up with your Primary Doctor to be re checked, 3-5 days is a general good time frame for follow up. You are always welcome to return to the ED for re assessment if your symptoms are worsening or you have new concerns Coding Level of Care Code ED Pantograph Transferrer for Trish Lara
[2024-06-26] MEDS: sodium chloride 0.9% 1,000 ML 999 ML IV (17:24)
[2024-06-26] MEDS: ondansetron 2 mg/ML SDV 2 mL 8 MG IVP (17:26)
[2024-06-26 17:28] VITALS: RESP 23
[2024-06-26] MEDS: oxyCODONE 5 mg IR Tab/Cap 10 MG PO (17:28)
[2024-06-26 17:36] LABS: Troponin(5th) Baseline 9 ng/L (0-15)
[2024-06-26 17:37] LABS: Alanine Aminotransferase 10 U/L (0-41); Albumin Level 4.2 g/dL (3.5-5.2); Alkaline Phosphatase 92 U/L (40-130); Anion Gap 18.3 (5-19); Aspartate Amino Transferase 12 U/L (0-40); Blood Urea Nitrogen 16 mg/dL (8-23); Calcium 9.4 mg/dL (8.5-10.5); Carbon Dioxide 22 mmol/L (22-29); Chloride 97 mmol/L (98-107); Creatinine Clr Calc Pharmacy 81.1377; Globulin 3.5 g/dL (1.3-4.6); Glucose 98 mg/dL (65-115); Lipase 64 U/L (13-60); Osmolality Calculated 277 mOsm/kg (285-295); Potassium 4.3 mmol/L (3.5-5.1); Sodium 133 mmol/L (136-145); Total Protein 7.7 g/dL (6.6-8.7)
[2024-06-26 18:38] LABS: Basophils % 0.4 %; Eosinophils # 0.1 10^3/uL (0.0-0.8); Eosinophils % 0.7 %; Hematocrit 46.6 % (37-53); Lymphocytes # 2.4 10^3/uL (0.8-4.8); Lymphocytes % 22.8 %; Mean Corpuscular HGB Conc 32.6 g/dL (30-55); Mean Corpuscular Hemoglobin 29.5 pg (27-33); Mean Corpuscular Volume 90.5 fl (82-101); Mean Platelet Volume 10.3 fL (7.4-10.4); Monocytes # 0.7 10^3/uL (0.2-0.9); Monocytes % 6.8 %; Neutrophils # 7.12 10^3/uL (1.8-7.7); Neutrophils % 68.9 %; Nucleated Red Blood Cells % 0 %; Platelet Count 213 10^3/cmm (157-399); Red Blood Count 5.15 10^6/uL (3.85-5.65); White Blood Count 10.33 10^3/uL (3.29-11.43)
[2024-06-26 18:42] VITALS: BP 191/77; PULSE 60; RESP 18; O2SAT 97
--- NOTE | 2024-06-26 18:49 | ECG_ITS ---
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 Measurements Intervals [place] Rate: 50 P: 64 [place]: 176 QRS: 53 QRSD: 91 T: 75 QT: 467 QTc: 428 Interpretive Statements SINUS BRADYCARDIA Compared to ECG 06/26/2024 16:38:01 No significant changes Electronically Signed On 06-26-2024 20:00:49 CDT by Radha Hoffmann M.D. [id number]
[2024-06-26 18:56] LABS: Lactic Sepsis W/Reflex 1.2 mmol/L (0.5-2.2)
[2024-06-26 19:03] VITALS: BP 184/78
[2024-06-26] MEDS: cloNIDine 0.1 mg Tablet PO (19:03)
[2024-06-26 19:22] LABS: Amphetamines Screen Urine Negative (Negative); Barbiturates Screen Urine Negative (Negative); Benzodiazepines Screen Urine Positive (Negative); Cocaine Screen Urine Negative (Negative); Opiate Screen Urine Positive (Negative); PCP Screen Urine Negative (Negative); THC Screen Urine Negative (Negative)
[2024-06-26 19:25] LABS: Bilirubin Urine Neg (Negative); Blood Urine Neg (Negative); Glucose Urine UA Norm (Normal); Ketones Urine 1+ (Negative); Leukocyte Esterase Urine Trace (Negative); Nitrate Urine Negative (Negative); Protein Urine Neg (Negative); RBC Urine 0-4 /hpf (0-2); Specific Gravity, Urine 1.005 (1.005-1.030); Squamous Epithelial Cell Urine 0-4 /hpf (0-5); Urine Appearance Clear (CLEAR); Urine Color Yellow (Yellow); Urobilinogen Urine 1 mg/dL (Negative); WBC Urine 0-4 /hpf (0-5); pH Urine 6 (5-7)
[2024-06-26 19:26] VITALS: BP 193/76; PULSE 53; RESP 21; O2SAT 96
[2024-06-26 19:26] LABS: Bacteria Urine TRACE /hpf; Mucus Urine 2+ /hpf
== END 2024-06-26 19:28 | disposition home or self-care (01) ==
PROVIDERS: Emergency Provider Emergency Medicine
DX: R07.89 Other chest pain (principal); I10 Essential (primary) hypertension; Z76.5 Malingerer [conscious simulation]; F11.20 Opioid dependence, uncomplicated; Z79.02 Long term (current) use of antithrombotics/antiplatelets; Z72.0 Tobacco use
CPT/HCPCS: 36415; 80053; 80306; 81001; 83605; 83690; 84484; 85025; 93005; 96361; 96374; 99284; J2405; J7030